=== PATIENT | male | born 1950 | race Caucasian/White ===

== ENCOUNTER → 2020-01-16 14:25 | Outpatient (BNVA) | payer BC, MEDICARE, SELFPAY | PROVIDERS: PCP Internal Medicine; Visit Provider Nurse Practitioner Family | DX: Z11.59 Encounter for screening for other viral diseases (principal); J06.9 Acute upper respiratory infection, unspecified | CPT/HCPCS: 87635 ==

== ENCOUNTER → 2020-04-27 14:12 | Outpatient (BNVA) | payer BC, MEDICARE, SELFPAY | PROVIDERS: PCP Internal Medicine; Visit Provider Nurse Practitioner Family | DX: Z20.828 Contact with and (suspected) exposure to other viral communicable diseases (principal); J06.9 Acute upper respiratory infection, unspecified | CPT/HCPCS: 87635 ==

== ENCOUNTER → 2020-06-23 13:49 | Outpatient (BNVA) | payer MEDICARE, SELFPAY | PROVIDERS: PCP Internal Medicine; Referring Provider Nurse Practitioner Family; Visit Provider Specialist | DX: G56.03 Carpal tunnel syndrome, bilateral upper limbs (principal); G62.9 Polyneuropathy, unspecified; R20.0 Anesthesia of skin; R20.2 Paresthesia of skin | CPT/HCPCS: 95910 ==

== ENCOUNTER 2020-07-31 07:19 | Outpatient (RCR) | payer MEDICARE, SELFPAY | END 2020-08-28 23:59 | disposition home or self-care (01) | LOC: SOT 07:19 | PROVIDERS: PCP Internal Medicine; Referring Provider Orthopaedic Surgery; Visit Provider Orthopaedic Surgery | DX: M19.031 Primary osteoarthritis, right wrist (principal) | CPT/HCPCS: 97018; 97110; 97165 ==

== ENCOUNTER 2021-02-02 15:40 | Observation (INO) | payer MEDICARE, SELFPAY ==
[2021-02-02] VITALS (11 sets, daily range): BP systolic 98–148; BP diastolic 63–107; PULSE 70–140; RESP 16–22; TEMP 36.6–36.9; O2SAT 97–98; BMI 28.6
--- NOTE | 2021-02-02 16:03 | ED_ITS ---
HPI - SOB/Dyspnea General: Chief Complaint: Chest Pain Stated Complaint: 2 ABNORMAL EKG'S,IRR HB W/FLUTTER: SENT BY NANCY Time Seen by Provider: 02/02/21 16:01 History of Present Illness: HPI Narrative: Ms Son is a 70-year-old gentleman without significant past medical history of arrhythmia who presents emergency department due to abnormal heart rhythm. He reports 3 to 4-day history of generalized malaise but no specific lightheadedness, palpitations, chest pain, or shortness of breath. He had positive sick contacts and thought that this was just related to that. He also has a history of Covid which has some baseline residual shortness of breath however that is not worse. He went to the urologist office and they took his heart rate and realized he was in atrial fibrillation with RVR. No history of similar. No specific known exacerbating, alleviating, or provoking factors. No environmental or medication changes. Review of Systems General: Reports: 10 or more systems reviewed and unremarkable except in HPI and below PFSH ED PFSH: Medical History Abdominal pain Bilateral carpal tunnel syndrome Bilateral wrist pain BPH (benign prostatic hyperplasia) COVID-19 History of pulmonary embolism Peripheral neuropathy Surgical History History of hernia repair Family History Other CAD (coronary artery disease) Denies family history of Cancer Social History Smoking and tobacco status: never smoked Alcohol intake: never Caregiver/support person: Yes Lives independently: Yes Household members: family Housing: House Physical Exam Narrative: EXAM NARRATIVE: GENERAL/CONSTITUTIONAL - well-appearing. No acute distress. Eyes - PERRL, no conjunctival injection ENMT - Atraumatic external nose and ears. Moist mucous membranes NECK - supple. trachea midline CARDIOVASCULAR -irregularly irregular rhythm. Tachycardic rate.. Peripheral pulses 2+ and equal RESPIRATORY -clear to auscultation bilaterally. No retractions or accessory muscle use. ABDOMEN/GI - Nontender/Nondistended. MSK - Extremities without obvious deformity or tenderness to palpation SKIN - Warm, Dry NEURO - alert and appropriately oriented. No neurologic deficits appreciated on clinical exam. Moves all extremities equally. PSYCH - Appropriate mood and affect Course ED course: - Patient was seen and evaluated by me at bedside - Patient placed on cardiac monitors, IV access obtained - Initial evaluation notable for atrial fibrillation with rapid ventricular response. - Due to unclear time of onset of symptoms, patient not a candidate for ED cardioversion. - Cardizem bolus and drip ordered with improved rate control. Lovenox ordered - Labs notable for leukocytosis of unclear source, no significant metabolic abnormality to explain patient's arrhythmia. - Imaging notable for no lobar consolidation - Upon serial reexamination after treatment the patient was improved with rate control - Based on patient history, evaluation, labs, and imaging as interpreted the most likely cause of the patient's condition is atrial fibrillation with RVR - The results of ED evaluation were discussed with the patient including plan for admission due to requirement for level of care not available if discharged to prevent significant worsening/deterioration. - Hospitalist service contacted and agreed to admit the patient. At their request further infectious work-up ordered given leukocytosis. CT chest, abdomen, pelvis results pending at time of admission and will be deferred to admitting team. - Patient was admitted without further deterioration or significant events. Vital Signs: Vital signs: Vital Signs Temperature 98.0 F 02/03/21 03:37 Pulse Rate 77 02/03/21 13:25 Respiratory Rate 19 H 02/03/21 13:25 Blood Pressure 119/75 02/03/21 13:25 Pulse Oximetry 97 02/03/21 13:25 MDM - SOB/Dyspnea Medical Records: Attestation: I reviewed the patient's medical records. Lab Data: Attestation: I reviewed the patient's lab results. Labs: Lab Results 02/02/21 02/02/21 02/02/21 16:05 16:05 16:05 WBC 21.2 10^3/uL H 10 ^3/uL (4.0-10.0) RBC 4.26 10^6/uL 10^6 /uL (4.1-5.3) Hgb 12.7 g/dL g/dL (11.7-16.6) Hct 40.1 % L % (42.0-52.0) MCV 94.1 fl H fl (80-94) MCH 29.8 pg pg (28.0-34.0) MCHC 31.7 g/dL g/dL (30.0-36.0) RDW 21.7 % H % (12.1-15.1) Plt Count 385 10^3/cmm 10^3 /cmm (130-400) MPV 8.5 fL fL (7.4-10.4) Neut % (Auto) 64.9 % % Lymph % (Auto) 15.0 % % Logan % (Auto) 13.6 % % Eos % (Auto) 2.2 % % Baso % (Auto) 1.0 % % Neut # (Auto) 13.76 10^3/uL H 1 0^3/uL (1.8-7.7) Lymph # (Auto) 3.2 10^3/uL 10^3/ uL (0.8-4.8) Logan # (Auto) 2.9 10^3/uL H 10^ 3/uL (0.2-0.9) Eos # (Auto) 0.5 10^3/uL 10^3/ uL (0.0-0.8) Baso # (Auto) 0.2 10^3/uL H 10^ 3/uL (0.0-0.1) Nucleated RBC % (a uto) 0 % % Nucleated RBCs # 0.0 /100WBC /100W BC D-Dimer Sodium 138 mmol/L mmol/L (136-145) Potassium 4.6 mmol/L mmol/L (3.5-5.1) Chloride 103 mmol/L mmol/L (98-107) Carbon Dioxide 25 mmol/L mmol/L (22-29) Anion Gap 14.6 (5-19) BUN 19 mg/dL mg/dL (8-23) Creatinine 0.9 mg/dL mg/dL (0.7-1.2) GFR Calculation Not Reportable Glucose 91 mg/dL mg/dL (65-115) Calculated Osmolal ity 288 mOsm/kg mOsm/ kg (285-295) Calcium 8.9 mg/dL mg/dL (8.5-10.5) Magnesium 2.0 mg/dL mg/dL (1.7-2.3) Total Bilirubin 0.7 mg/dL mg/dL (0.15-1.2) AST 26 U/L U/L (0-40) ALT 20 U/L U/L (0-41) Alkaline Phosphata se 145 IU/L H IU/L (40-130) Troponin T Baselin e 61 ng/L H ng/L (0-15) NT-Pro-B Natriuret Pep 2172 pg/mL H pg/m L (0-125) Total Protein 6.7 g/dL g/dL (6.6-8.7) Albumin 3.9 g/dL g/dL (3.5-5.2) Globulin 2.8 g/dL g/dL (1.3-4.6) TSH 2.16 uIU/mL uIU/m L (0.27-4.20) SARS-CoV-2 Ag (Rap id) 02/02/21 02/02/21 16:05 16:45 WBC RBC Hgb Hct MCV MCH MCHC RDW Plt Count MPV Neut % (Auto) Lymph % (Auto) Logan % (Auto) Eos % (Auto) Baso % (Auto) Neut # (Auto) Lymph # (Auto) Logan # (Auto) Eos # (Auto) Baso # (Auto) Nucleated RBC % (a uto) Nucleated RBCs # D-Dimer 0.62 ug/mIFEU H u g/mIFEU (0-0.59) Sodium Potassium Chloride Carbon Dioxide Anion Gap BUN Creatinine GFR Calculation Glucose Calculated Osmolal ity Calcium Magnesium Total Bilirubin AST ALT Alkaline Phosphata se Troponin T Baselin e NT-Pro-B Natriuret Pep Total Protein Albumin Globulin TSH SARS-CoV-2 Ag (Rap id) Negative (Negative) EKG Data^: EKG 1: Attestation: I personally reviewed and interpreted this EKG as follows: EKG Interpretation Date: 02/02/21 EKG interpretation time: 15:58 Interpretation: Twelve-lead EKG shows an irregular rhythm at a rate of 145. No OH interval, QRS duration 113, QTc 368. Left axis deviation. : Interpretation: Atrial rhythm with rapid ventricular response. EKG 2: Attestation: I personally reviewed and interpreted this EKG as follows: EKG Interpretation Date: 02/02/21 EKG interpretation time: 19:00 Interpretation: Twelve-lead EKG shows a irregular rhythm at a rate of 97 No OH interval, QRS duration 98, QTc 397 Normal axis Interpretation: Atrial flutter with controlled ventricular response. Discharge Plan Discharge Admit Provider: Cristobal West Condition: Stable Discharge Orders: Discharge Order (Routine); Ordered 02/03/21 Ordered By: Cristobal West Discharge Diet: Cardiac Discharge Activity: Resume usual activity Coding Level of Care Code ED Student Activities Director for Natasha Salmeron
--- NOTE | 2021-02-02 16:11 | XR_ITS ---
WS: [id number] XR chest 1V portable [id number] REASON FOR EXAM: afib rvr FINDINGS: Moderate tortuosity, mild ectasia, of the thoracic aorta without focal aneurysmal dilatation. Normal heart size. Calcified granulomatous disease in both hemithoraces. There are 2 opacities in the periphery of the l eft midlung field of uncertain etiology but likely part of the calcified granulomatous changes. No acute pulmonary parenchymal or pleural abnormality. Mild degenerative changes in the mid and lower thoracic spine. XR/XR chest 1V portable [id number] IMPRESSION: No acute chest abnormality.
[2021-02-02 16:21] LABS: Basophils # 0.2 10^3/uL (0.0-0.1); Eosinophils # 0.5 10^3/uL (0.0-0.8); Eosinophils % 2.2 %; Hematocrit 40.1 % (42.0-52.0); Hemoglobin 12.7 g/dL (11.7-16.6); Lymphocytes # 3.2 10^3/uL (0.8-4.8); Mean Corpuscular HGB Conc 31.7 g/dL (30.0-36.0); Mean Corpuscular Hemoglobin 29.8 pg (28.0-34.0); Mean Corpuscular Volume 94.1 fl (80-94); Mean Platelet Volume 8.5 fL (7.4-10.4); Monocytes # 2.9 10^3/uL (0.2-0.9); Monocytes % 13.6 %; Neutrophils # 13.76 10^3/uL (1.8-7.7); Neutrophils % 64.9 %; Nucleated Red Blood Cells % 0 %; Platelet Count 385 10^3/cmm (130-400); Red Blood Count 4.26 10^6/uL (4.1-5.3); Red Cell Distribution Width 21.7 % (12.1-15.1); White Blood Count 21.2 10^3/uL (4.0-10.0)
[2021-02-02] MEDS: enoxaparin 80 mg/0.8 mL Syringe SUBCUT (16:42)
[2021-02-02 17:10] LABS: Troponin(5th) Baseline 61 ng/L (0-15)
[2021-02-02 17:17] LABS: Alanine Aminotransferase 20 U/L (0-41); Albumin Level 3.9 g/dL (3.5-5.2); Alkaline Phosphatase 145 IU/L (40-130); Anion Gap 14.6 (5-19); Aspartate Amino Transferase 26 U/L (0-40); Blood Urea Nitrogen 19 mg/dL (8-23); Calcium 8.9 mg/dL (8.5-10.5); Carbon Dioxide 25 mmol/L (22-29); Chloride 103 mmol/L (98-107); Globulin 2.8 g/dL (1.3-4.6); Glucose 91 mg/dL (65-115); NT Pro B Type Natriuretic Pept 2172 pg/mL (0-125); Osmolality Calculated 288 mOsm/kg (285-295); Potassium 4.6 mmol/L (3.5-5.1); Sodium 138 mmol/L (136-145); Thyroid Stimulating Hormone 2.16 uIU/mL (0.27-4.20); Total Bilirubin 0.7 mg/dL (0.15-1.2); Total Protein 6.7 g/dL (6.6-8.7)
--- NOTE | 2021-02-02 18:06 | P.HP_ITS ---
Providers/Chief Complaint Primary Care Provider: Fabi Loving DO Chief Complaint: 2 ABNORMAL EKG'S,IRR HB W/FLUTTER: SENT BY NANCY History of Present Illness Ponce Son is a 70 year old male with past medical history of COVID-19 last year, BPH, pulmonary embolism more than 20 years ago post abdominal hernia surgery who presented to the ER today from urology office when he was found to have atrial fibrillation with rapid ventricular response on vital checks. Patient denies any nausea vomiting, headache, dizziness, palpitation, chest pain. Patient states he has been having difficulty in breathing since he got over COVID-19 in March of last year. Currently he denies of having any symptoms. He does states he has been having lower abdominal pain for last 1 week which he attributed to his chronic prostate problems. Denies having any dysuria or diarrhea. Does have sick contacts with family members having sym ptoms of viral URI. Has been vaccinated for COVID-19. Blood work in the ER showed a white count of 21,000, hemoglobin of 12, sodium 138, creatinine of 0.9, alkaline phosphatase of 145, proBNP of 3000, TSH of 2.16 with chest x-ray as below. On examination patient is on Cardizem drip 5 with heart rate ranging from high 80s to high 90s sometimes going into 110s with blood pressure mean over 70, satu rating 95% on room air. Review of Systems General: Reports: 10 or more systems reviewed and unremarkable except in HPI and below Const: Denies: fever(s), chills, body aches, change in appetite, change in weight, malaise, night sweats, diaphoresis, change in sleep pattern, daytime sleepiness or snoring Eyes: Denies: change in vision, blurry vision, photophobia, eye discomfort or eye discharge ENMT: Denies: throat pain, enlarged tonsils, hoarseness, mouth pain, oral sores, dry mouth, tinnitus, nasal congestion or post nasal drip Card: Denies: chest pain, palpitations, irregular heart rhythm, edema, swelling of feet/ankles, lightheadedness, syncope, pre-syncope, dyspnea on exertion, orthopnea, leg pain with exertion or acrocyanosis Resp: Denies: dyspnea, productive cough, non-productive cough, wheezing, stridor, pain on inspiration, change in phlegm color, hemoptysis or chest congestion GI: Denies: abdominal pain, nausea, vomiting, hematemesis, coffee ground emesis, dysphagia, heartburn, diarrhea, constipation, bloating, GI cramping, change in bowel habits, pain on defecation, hematochezia or melena : Denies: flank pain, difficulty urinating, dysuria, urinary frequency, urinary urgency, urinary hesitancy, urinary dribbling, difficulty starting urination, change in urine stream, nocturia or hematuria Musc: Denies: neck pain, back pain, extremity pain, joint pain, joint swelling, joint redness, joint stiffness or limited range of motion Neuro: Denies: headache(s), numbness in extremities, weakness in extremities, sensory changes, lack of coordination, difficulty walking, frequent falls, dizziness, vertigo, confusion, Slurred speech present, difficulty communicating thoughts or seizure-like activity Psych: Denies: anxiety, depression, mood swings, panic attacks, hopelessness or irritability Endo: Denies: polyuria, polydipsia, tired all the time, cold intolerance, excessive sweating, flushing or heat intolerance Luis/Lymph: Denies: easy bruising or easy bleeding All/Imm: Denies: tongue swelling, facial swelling or acute wheezing Medications/Allergies Home Medications Medication Instructions Recorded Confirmed Last Taken Type atorvastatin 40 mg tablet 40 mg PO DAILY@01/16/20 02/02/21 02/01/21 History tamsulosin 0.4 mg capsule 0.4 mg PO DAILY@01/16/20 02/02/21 02/01/21 History Mobic 15 mg PO DAILY@02/02/21 02/02/21 02/01/21 History Vitamin B-12 2 tab PO DAILY 02/02/21 02/02/21 Unknown History ascorbic acid (vitamin C) [Vitamin 500 mg PO DAILY 02/02/21 02/02/21 Unknown History C] aspirin 325 mg PO Q4H PRN 02/02/21 02/02/21 Unknown History glucosamine sulfate [Glucosamine] 500 mg PO DAILY 02/02/21 02/02/21 Unknown History multivitamin 1 tab PO DAILY 02/02/21 02/02/21 Unknown History omeprazole 60 mg PO DAILY@18 02/02/21 02/02/21 02/01/21 History tadalafil 20 mg PO . DIRECTED PRN 02/02/21 02/02/21 Unknown History Allergies Allergy/AdvReac Type Severity Reaction Status Date / Time guaifenesin [From Mucinex] Allergy ADV-Weaknes Verified 02/02/21 16:51 s PFSH Acute PFSH: Medical History (Updated 02/02/21 @ 18:30 by Cristobal West MD) Bilateral carpal tunnel syndrome Bilateral wrist pain BPH (benign prostatic hyperplasia) COVID-19 History of pulmonary embolism Peripheral neuropathy Surgical History (Updated 02/02/21 @ 18:30 by Cristobal West MD) History of hernia repair Family History (Updated 02/02/21 @ 18:30 by Cristobal West MD) Other CAD (coronary artery disease) Denies family history of Cancer Social History (Updated 02/02/21 @ 18:30 by Cristobal West MD) Smoking and tobacco status: never smoked Alcohol intake: never Substance/Drug Use: never Caregiver/support person: Yes Lives independently: Yes Household members: family Housing: House Vitals/I&O/Wt Last Vital Signs Temp 98.3 F 02/02/21 16:20 Pulse 99 02/02/21 17:51 Resp 16 02/02/21 17:51 BP 116/79 02/02/21 17:51 Pulse Ox 98 02/02/21 17:51 Weight last 48 hrs Weight 83.007 kg Physical Exam Narrative: EXAM NARRATIVE: General: No acute distress, AO x3 HEENT: PERRLA, pupils bilaterally equal and reactive Chest: Normal vesicular breath sounds, no added sounds, equal good air entry bilaterally CVS: S1-S2 irregularly irregular, no murmurs, no tachycardia, no gallops, no rubs Abdomen: Soft, nontender, no organomegaly, bowel sounds present Neuro: No focal deficits, no facial deformity, AO x3, power 5/5 in all limbs Data : 02/02/21 16:05 02/02/21 16:05 A&P Assessment and plan (1) New onset a-fib: Status: Acute (2) Abdominal pain: Status: Acute Additional A&P Information New onset atrial fibrillation: Continue with Cardizem drip. Start patient on Cardizem 60 every 8 hourly. Wean off Cardizem drip keeping resting heart rate less than 100. Sharan vas score: 1 for age. Discussed in detail with patient regarding anticoagulation. Patient states he has history of easy bruising especially since COVID-19. For now we will keep patient on aspirin 325 mg daily. Check D-dimer, cardiac echocardiogram. Leukocytosis: No overt signs of sepsis. No overt signs of infection. Check procalcitonin, blood culture, MRSA swab, urinalysis, urine culture, sputum culture. Check CT abdomen pelvis with contrast. If D-dimer elevated will do CT chest with contrast as well. For now start patient on IV Zosyn which would cover for a possible colitis versus UTI. Will de-escalate diuretics. If CT results negative and if patient does not spike fever in next 24 hours. Check iron panel, PSA, lipid panel, HbA1c. Full code. Cardiac diet. Aspirin 325 mg will help with DVT prophylaxis as well Famotidine for PUD prophylaxis Attestations Medical Necessity Statement*: Admission for more than 2 midnights for management of new onset atrial fibrillation requiring IV Cardizem Time Spent in Patient Care: Greater than 35 minutes (>than 50% of time spent in counselling and/or direct pt care on unit) . Coding Level of Care Code Acute Microbiology Soil Scientist for g Fwd Diagnoses New onset a-fib I48.91 Abdominal pain R10.9
--- NOTE | 2021-02-02 18:11 | ECG_ITS ---
[facility] Test Date: 2021-02-02 Pat Name: Ponce Son Department: Room: 106 Gender: Male Apple Sorter: : 1950 Requested By: Bladimir Foster Order Number: [id number] Suha MD: Mateo Hernandez M.D. Measurements Intervals [place] Rate: 97 P: RI: QRS: 16 QRSD: 98 T: 81 QT: 342 QTc: 436 Interpretive Statements ATRIAL FLUTTERwith variable block NONSPECIFIC T-WAVE ABNORMALITY ABNORMAL RHYTHM ECG No previous ECG available for comparison Electronically Signed On 02-03-2021 23:05:13 CDT by Mateo Hernandez M.D. [id number]
[2021-02-02 18:31] LABS: SARS Covid-2 Antigen Negative (Negative)
[2021-02-02 18:47] LABS: Troponin 5 2HR 66.66 ng/L (0-15); Troponin 5 2HR Delta 5.66 ABS# (0-10)
[2021-02-02 18:48] LABS: D Dimer 0.62 ug/mIFEU (0-0.59)
[2021-02-02 18:50] LABS: Iron 29 ug/dL (59-158); Percent Saturation 12.5 % (20-50); Total Iron Binding Capacity 232 mcg/dl; Unsaturated Iron Binding 203 ug/dL (112-347)
[2021-02-02] MEDS: dilTIAZem 30 mg Tablet 60 MG PO ×2 (18:50→23:27)
[2021-02-02] MEDS: atorvastatin 40 mg Tablet PO (18:50)
[2021-02-02 18:51] LABS: Add Urine Microscopic? NO; Charge for UA Resulting for Rev
--- NOTE | 2021-02-02 18:53 | CTR_ITS ---
PROCEDURE INFORMATION: Exam: CT Chest With Contrast; Diagnostic Exam date and time: 02/02/2021 6:53 PM Age: 70 years old Clinical indication: Abdominal pain; Localized; Lower; Other: High hr, abnormal ekg; Prior surgery; Surgery type: Hernia; Additional info: Elevated ddimer TECHNIQUE: Imaging protocol: Diagnostic computed tomography of the chest with contrast. Radiation optimization: All CT scans at this facility use at least one of these dose optimization techniques: automated exposure control; mA and/or kV adjustment per patient size (includes targeted exams where dose is matched to clinical indication); or iterative reconstruction. Contrast material: OMNI 300; Contrast volume: 95 ml; Contrast route: INTRAVENOUS (IV); COMPARISON: CR (CHEST, ) 02/02/2021 4:25 PM RADIATION DOSE METRICS: Total DLP (mGy-cm): 1575.32 FINDINGS: Lungs: Small patchy ground-glass opacities scattered throughout the left upper and lower lobes. 1.6 cm nodular consolidation in the peripheral left upper lobe. 4 mm right lower lobe nodule, series 2, image 34. 3 mm right lower lobe nodule, image 35. Pleural spaces: Unremarkable. No pneumothorax. No pleural effusion. Heart: Trace pericardial effusion. Aorta: Unremarkable. No aortic aneurysm. Lymph nodes: Prominent mediastinal and hilar lymph nodes are most likely reactive. Bones/joints: Mild rightward thoracic curvature. No fracture. Soft tissues: Unremarkable. IMPRESSION: 1. Scattered ground-glass opacities throughout the left lung, consistent with pneumonia. 2. 1.6 cm nodular consolidation in the peripheral left upper lobe is most likely pneumonia. CT follow-up in 2-3 months to document resolution is recommended. 3. Pulmonary nodules measuring up to 4 mm. For patients at low risk (minimal or absent history of smoking and of other known risk factors), no routine follow-up is indicated. For patients at high risk (history of smoking or of other known risk factors), consider optional CT Chest at 12 months. (Reference: [place]) References: Herlinda Olivas et al. Guidelines for Management of Incidental Pulmonary Nodules Detected on CT Images: From the Fleischner Society 2017. Radiology. 2017;284(1):228-243. PROCEDURE INFORMATION: Exam: CT Abdomen And Pelvis With Contrast Exam date and time: 02/02/2021 6:53 PM Age: 70 years old Clinical indication: Abdominal pain; Localized; Lower; Other: High hr, abnormal ekg; Prior surgery; Surgery type: Hernia; Additional info: Elevated ddimer TECHNIQUE: Imaging protocol: Computed tomography of the abdomen and pelvis with contrast. Radiation optimization: All CT scans at this facility use at least one of these dose optimization techniques: automated exposure control; mA and/or kV adjustment per patient size (includes targeted exams where dose is matched to clinical indication); or iterative reconstruction. Contrast material: OMNI 300; Contrast volume: 95 ml; Contrast route: INTRAVENOUS (IV); COMPARISON: CR (CHEST, ) 02/02/2021 4:25 PM RADIATION DOSE METRICS: Total DLP (mGy-cm): 1575.32 FINDINGS: Tubes, catheters and devices: Mesh anchors in the lower anterior abdominal wall. Liver: Normal. No mass. Gallbladder and bile ducts: Normal. No calcified stones. No ductal dilation. Pancreas: Normal. No ductal dilation. Spleen: Normal. No splenomegaly. Adrenal glands: Normal. No mass. Kidneys and ureters: 2.4 cm oval cortical lesion in the inferior right kidney, Hounsfield units measuring 22. The kidneys are otherwise unremarkable. No calculus or hydronephrosis. Stomach and bowel: Duodenal diverticulum. Appendix: The appendix is visualized and is normal. Intraperitoneal space: Unremarkable. No free air. No significant fluid collection. Vasculature: Arterial calcifications. No aneurysm. Lymph nodes: Unremarkable. No enlarged lymph nodes. Urinary bladder: Unremarkable as visualized. Reproductive: Coarse calcifications in the prostate. Bones/joints: Degenerative changes in the lumbar spine. No fracture. Soft tissues: Small fat containing umbilical hernia. Mild stranding and gas bubbles in the anterior left abdominal wall most likely represent medication injection sites. Mild subcutaneous edema in the hip regions. CT/CT chest abd pel w con* IMPRESSION: 1. No acute abnormality identified in the abdomen or pelvis. 2. 2.4 cm cortical lesion in the inferior right kidney is most likely a slightly proteinaceous cyst with Hounsfield units slightly greater than the strict criteria for a simple cyst. Recommend non-emergent MRI without and with contrast or non-emergent CT without and with contrast. MRI is preferred for masses under 1.5 cm. Radiation Dose CTDIVOL = (mGy): DLP = 1575.32~1575.32 (mGy-cm)
[2021-02-02 18:57] LABS: Procalcitonin 0.14 ng/mL (0-0.5)
[2021-02-02 19:09] LABS: Bilirubin Urine Neg (Negative); Blood Urine Neg (Negative); Glucose Urine UA Norm (Normal); Ketones Urine Negative (Negative); Leukocyte Esterase Urine Negative (Negative); Nitrate Urine Negative (Negative); Protein Urine Neg (Negative); Urine Appearance Clear (CLEAR); Urine Color Yellow (Yellow); Urobilinogen Urine Norm (Negative); pH Urine 5 (5-7)
[2021-02-02] MEDS: iohexol 300 mg/mL 100 mL Btl IV (19:17)
--- NOTE | 2021-02-02 22:11 | ECG_ITS ---
[facility] Test Date: 2021-02-02 Pat Name: Ponce Son Department: Room: 106 Gender: Male Machine Ii Trimmer: : 1950 Requested By: Bladimir Foster Order Number: [id number] Suha MD: Mateo Hernandez M.D. Measurements Intervals [place] Rate: 77 P: OH: QRS: 9 QRSD: 102 T: 83 QT: 395 QTc: 447 Interpretive Statements ATRIAL FLUTTER/TACHYCARDIA Compared to ECG 02/02/2021 18:55:25 T-wave abnormality no longer present Electronically Signed On 02-03-2021 23:06:12 CDT by Mateo Hernandez M.D. [id number]
[2021-02-03 03:03] VITALS: PULSE 66
[2021-02-03 03:37] VITALS: BP 118/74; PULSE 78; RESP 16; TEMP 36.7; O2SAT 97
[2021-02-03 05:01] LABS: Basophils # 0.2 10^3/uL (0.0-0.1); Basophils % 1.1 %; Eosinophils # 0.6 10^3/uL (0.0-0.8); Eosinophils % 3.2 %; Hematocrit 38.7 % (42.0-52.0); Hemoglobin 12.4 g/dL (11.7-16.6); Lymphocytes # 2.5 10^3/uL (0.8-4.8); Lymphocytes % 14.2 %; Mean Corpuscular Hemoglobin 30.2 pg (28.0-34.0); Mean Corpuscular Volume 94.4 fl (80-94); Mean Platelet Volume 8.5 fL (7.4-10.4); Monocytes # 2.7 10^3/uL (0.2-0.9); Monocytes % 15.6 %; Neutrophils # 10.83 10^3/uL (1.8-7.7); Neutrophils % 62.1 %; Nucleated Red Blood Cells % 0 %; Platelet Count 347 10^3/cmm (130-400); Red Cell Distribution Width 21.9 % (12.1-15.1); White Blood Count 17.5 10^3/uL (4.0-10.0)
[2021-02-03 05:27] LABS: Alanine Aminotransferase 17 U/L (0-41); Albumin Level 3.5 g/dL (3.5-5.2); Alkaline Phosphatase 145 IU/L (40-130); Anion Gap 12.2 (5-19); Aspartate Amino Transferase 22 U/L (0-40); Blood Urea Nitrogen 16 mg/dL (8-23); Calcium 8.7 mg/dL (8.5-10.5); Carbon Dioxide 25 mmol/L (22-29); Chloride 106 mmol/L (98-107); Chol HDL Ratio 4.52 mg/dL (1.0-5.00); Cholesterol 104 mg/dL (0-200); Globulin 2.8 g/dL (1.3-4.6); Glucose 92 mg/dL (65-115); HDL Cholesterol 23 mg/dL (60-100); LDL Cholesterol Calculated 52 mg/dL (50-129); LDL HDL Ratio 2.26 RATIO (0.00-3.22); Osmolality Calculated 289 mOsm/kg (285-295); Potassium 4.2 mmol/L (3.5-5.1); Sodium 139 mmol/L (136-145); Total Bilirubin 0.8 mg/dL (0.15-1.2); Total Protein 6.3 g/dL (6.6-8.7); Triglycerides 143 mg/dL (0-150)
[2021-02-03 05:46] LABS: Estmated Average Glucose 111; Hemoglobin A1C 5.5 % (4.0-6.0)
[2021-02-03 07:51] VITALS: BP 110/76; PULSE 103; RESP 17; O2SAT 94
--- NOTE | 2021-02-03 09:20 | PC.CHAP ---
Pastoral Care Encounter/Spiritual Assessment Type of Contact [] Declined cable hooker visit [] Patient/Family/Request visit [] Outpatient visit [] Follow-up visit [] Physician referral [] Code/Alert [x] Routine visit [] Staff referral [] Actively dying [] Patient sleeping [] Family support [] [] Out of room [] Palliative care [] [] Receiving care in room [] Pre-surgical visit [] Trauma [] Long length of stay [] ICU visit [] Other: Relational/Emotional Strength [] Patient feels connected with others/family/visitors/staff [] Distress [] Loneliness/isolation [] Abandonment Spirituality of Patient [x] Person of Annika [] Attends Protestant of their Annika [] Believes in Prayer [] Reads Bible or Orthodox materials [] There are Spiritual issues to be addressed Solar Hot Water Installer Interventions [x] Prayer [x] Active listening [x] Non-anxious presence [x] Spiritual/emotional support [] Crisis/trauma care [] Spiritual counseling [] Bereavement support [] Provided bereavement packet [] Provided Bible/devotional materials [] Provided toy/stuffed animal, coloring book to patient or family member [] Provided Communion [] Anointing/[place] [] Salvation [x] Completed spiritual assessment [] Other: Impact on Illness or Injury [] Angry [] Fearful [] Anxious [] Often cries [] Exhaustion [] Unable to work [] Unable to attend muslim [] Unable to walk/stand [] Unable to read [] Unable to drive [] Unable to eat/drink [] Unable to sleep [] Unable to be with family [] Patient intubated [] Other: Summary visited GP for one issue and another was noted and he is here getting it addressed. appreciates the staff for their care. Time spent with patient 10 min
[2021-02-03] MEDS: ferrous gluconate 324 mg Tablet PO (09:28)
[2021-02-03] MEDS: famotidine 20 mg Tablet PO (09:29)
[2021-02-03] MEDS: dilTIAZem 30 mg Tablet 60 MG PO (09:29)
--- NOTE | 2021-02-03 11:48 | PC.NURSE ---
pt ambulated in [place] several laps.tolerated well.highest heart rate 110.recovered quickly.no bee noted.o2 sat 100% on room air after walk.
[2021-02-03 12:00] VITALS: BP 119/75; PULSE 77; RESP 19; O2SAT 97
--- NOTE | 2021-02-03 12:38 | PM.DCS ---
Discharge Providers Date of Admission: 02/02/21 17:45 Date of Discharge: February 03, 2021 Attending Provider at Admission: Cristobal West MD Attending Provider at Discharge: Cristobal West MD Primary Care Provider: Fabi Loving DO Diagnoses at Discharge Discharge Diagnosis (1) New onset a-fib: Status: Acute (2) Abdominal pain: Status: Acute Reason for Visit Reason for Visit: 2 ABNORMAL EKG'S,IRR HB W/FLUTTER: SENT BY [facility] Hospital Course Hospital Course Ponce Son is a 70 year old male with past medical history of COVID-19 last year, BPH, pulmonary embolism more than 20 years ago post abdominal hernia surgery who presented to the ER today from urology office when he was found to have atrial fibrillation with rapid ventricular response on vital checks. Patient denies any nausea vomiting, headache, dizziness, palpitation, chest pain. Patient states he has been having difficulty in breathing since he got over COVID-19 in March of last year. Currently he denies of having any symptoms. He does states he has been having lower abdominal pain for last 1 week which he attributed to his chronic prostate problems. Denies having any dysuria or diarrhea. Does have sick contacts with family members having symptoms of viral URI. Has been vaccinated for COVID-19. Blood work in the ER showed a white count of 21,000, hemoglobin of 12, sodium 138, creatinine of 0.9, alkaline phosphatase of 145, proBNP of 3000, TSH of 2.16 with chest x-ray as below. Patient was admitted to hospital for further management of atrial fibrillation. He was started on Cardizem drip which was later transitioned over to oral Cardizem. He responded well to the treatment and has remained rate controlled both at rest and ambulation. Patient started Vascor was found to be 1 for his age. Further anticoagulation needs and modalities were discussed in detail with the patient and he decided to remain on aspirin 325 mg daily. Admission patient was found to have significant leukocytosis without any active signs of infection. CT abdomen pelvis chest was done which showed a negative signs for infection. CT chest did show pulmonary nodules which could be reactive or resolving Covid consolidations. Patient did not have any active signs of pneumonia. Cultures have remained negative and patient remained hemodynamically stable and afebrile off antibiotics. Patient is being discharged in hemodynamically stable condition with advised to follow-up with his primary care provider within next 1 week. He is advised to have pulmonary function test as an outpatient and follow-up with pulmonology within next 2 weeks. Physical Exam Narrative: EXAM NARRATIVE: General: No acute distress, AO x3 HEENT: PERRLA, pupils bilaterally equal and reactive Chest: Normal vesicular breath sounds, no added sounds, equal good air entry bilaterally CVS: S1-S2 irregularly irregular, no murmurs, no tachycardia, no gallops, no rubs Abdomen: Soft, nontender, no organomegaly, bowel sounds present Neuro: No focal deficits, no facial deformity, AO x3, power 5/5 in all limbs Discharge Data Data Completed and Pending: Completed Studies During Hospitalization Category Date Time Status CT chest abd pel w con* Routine Cat Scan 02/02/21 18:53 Completed XR chest 1V cristopher ble [id number] Urgent Exams 02/02/21 16:11 Completed CV. echo complete * [id number] Routine Ultrasound 02/03/21 18:04 Completed Pending at discharge Category Date Time Status Blood Culture Sta t Lab 02/02/21 18:34 Results MRSA by PCR Routi ne Lab 02/02/21 20:15 Received Sputum Culture an d Gram Stain Stat Lab 02/02/21 21:00 Received Labs from last 24 hours 02/03/21 02/03/21 02/03/21 04:30 04:30 04:30 WBC 17.5 H RBC 4.10 Hgb 12.4 Hct 38.7 L MCV 94.4 H MCH 30.2 MCHC 32.0 RDW 21.9 H Plt Count 347 MPV 8.5 Neut % (Auto) 62.1 Lymph % (Auto) 14.2 [place] % (Auto) 15.6 Eos % (Auto) 3.2 Baso % (Auto) 1.1 Neut # (Auto) 10.83 H Lymph # (Auto) 2.5 [place] # (Auto) 2.7 H Eos # (Auto) 0.6 Baso # (Auto) 0.2 H Nucleated RBC % (a uto) 0 Nucleated RBCs # 0.0 D-Dimer Sodium 139 Potassium 4.2 Chloride 106 Carbon Dioxide 25 Anion Gap 12.2 BUN 16 Creatinine 0.9 GFR Calculation Not Reportable Glucose 92 Estimat Average Gl ucose 111 Hemoglobin A1c 5.5 Calculated Osmolal ity 289 Calcium 8.7 Magnesium Iron TIBC % Saturation Unsat Iron Binding Total Bilirubin 0.8 AST 22 ALT 17 Alkaline Phosphata se 145 H Troponin T Baselin e Troponin T 120 [address] [place] Delta Troponin T Troponin T Hi Sens 6Hr Troponin T Hi Sens 6Hr Delta NT-Pro-B Natriuret Pep Total Protein 6.3 L Albumin 3.5 Globulin 2.8 Triglycerides 143 Cholesterol 104 LDL Cholesterol, C alc 52 HDL Cholesterol 23 L LDL/HDL Ratio 2.26 Cholesterol/HDL Ra selena 4.52 Procalcitonin TSH Urine Color Urine Appearance Urine pH Ur Specific Gravit y Urine Protein Urine Glucose (UA) Urine Ketones Urine Blood Urine Nitrate Urine Bilirubin Urine Urobilinogen Ur Leukocyte Sandi ase SARS-CoV-2 Ag (Rap id) 02/02/21 02/02/21 02/02/21 21:41 18:50 18:00 WBC RBC Hgb Hct MCV MCH MCHC RDW Plt Count MPV Neut % (Auto) Lymph % (Auto) [place] % (Auto) Eos % (Auto) Baso % (Auto) Neut # (Auto) Lymph # (Auto) [place] # (Auto) Eos # (Auto) Baso # (Auto) Nucleated RBC % (a uto) Nucleated RBCs # D-Dimer Sodium Potassium Chloride Carbon Dioxide Anion Gap BUN Creatinine GFR Calculation Glucose Estimat Average Gl ucose Hemoglobin A1c Calculated Osmolal ity Calcium Magnesium Iron TIBC % Saturation Unsat Iron Binding Total Bilirubin AST ALT Alkaline Phosphata se Troponin T Baselin e Troponin T 120 Min [place] Delta Troponin T Troponin T Hi Sens 6Hr 70.50 H Troponin T Hi Sens 6Hr Delta 9.50 NT-Pro-B Natriuret Pep Total Protein Albumin Globulin Triglycerides Cholesterol LDL Cholesterol, C alc HDL Cholesterol LDL/HDL Ratio Cholesterol/HDL Ra selena Procalcitonin Cancelled TSH Urine Color Yellow Urine Appearance Clear Urine pH 5 Ur Specific Gravit y 1.020 Urine Protein Neg Urine Glucose (UA) Norm Urine Ketones Negative Urine Blood Neg Urine Nitrate Negative Urine Bilirubin Neg Urine Urobilinogen Norm Ur Leukocyte Sandi ase Negative SARS-CoV-2 Ag (Rap id) 02/02/21 02/02/21 02/02/21 18:00 18:00 16:45 WBC RBC Hgb Hct MCV MCH MCHC RDW Plt Count MPV Neut % (Auto) Lymph % (Auto) [place] % (Auto) Eos % (Auto) Baso % (Auto) Neut # (Auto) Lymph # (Auto) [place] # (Auto) Eos # (Auto) Baso # (Auto) Nucleated RBC % (a uto) Nucleated RBCs # D-Dimer Sodium Potassium Chloride Carbon Dioxide Anion Gap BUN Creatinine GFR Calculation Glucose Estimat Average Gl ucose Hemoglobin A1c Calculated Osmolal ity Calcium Magnesium Iron 29 L TIBC 232 % Saturation 12.5 L Unsat Iron Binding 203 Total Bilirubin AST ALT Alkaline Phosphata se Troponin T Baselin e Troponin T 120 [address] [place] 66.66 H Delta Troponin T 5.66 Troponin T Hi Sens 6Hr Troponin T Hi Sens 6Hr Delta NT-Pro-B Natriuret Pep Total Protein Albumin Globulin Triglycerides Cholesterol LDL Cholesterol, C alc HDL Cholesterol LDL/HDL Ratio Cholesterol/HDL Ra selena Procalcitonin 0.14 TSH Urine Color Urine Appearance Urine pH Ur Specific Gravit y Urine Protein Urine Glucose (UA) Urine Ketones Urine Blood Urine Nitrate Urine Bilirubin Urine Urobilinogen Ur Leukocyte Sandi ase SARS-CoV-2 Ag (Rap id) Negative 02/02/21 02/02/21 02/02/21 16:05 16:05 16:05 WBC RBC Hgb Hct MCV MCH MCHC RDW Plt Count MPV Neut % (Auto) Lymph % (Auto) [place] % (Auto) Eos % (Auto) Baso % (Auto) Neut # (Auto) Lymph # (Auto) [place] # (Auto) Eos # (Auto) Baso # (Auto) Nucleated RBC % (a uto) Nucleated RBCs # D-Dimer 0.62 H Sodium 138 Potassium 4.6 Chloride 103 Carbon Dioxide 25 Anion Gap 14.6 BUN 19 Creatinine 0.9 GFR Calculation Not Reportable Glucose 91 Estimat Average Gl ucose Hemoglobin A1c Calculated Osmolal ity 288 Calcium 8.9 Magnesium 2.0 Iron TIBC % Saturation Unsat Iron Binding Total Bilirubin 0.7 AST 26 ALT 20 Alkaline Phosphata se 145 H Troponin T Baselin e 61 H Troponin T 120 [address] [place] Delta Troponin T Troponin T Hi Sens 6Hr Troponin T Hi Sens 6Hr Delta NT-Pro-B Natriuret Pep 2172 H Total Protein 6.7 Albumin 3.9 Globulin 2.8 Triglycerides Cholesterol LDL Cholesterol, C alc HDL Cholesterol LDL/HDL Ratio Cholesterol/HDL Ra selena Procalcitonin TSH 2.16 Urine Color Urine Appearance Urine pH Ur Specific Gravit y Urine Protein Urine Glucose (UA) Urine Ketones Urine Blood Urine Nitrate Urine Bilirubin Urine Urobilinogen Ur Leukocyte Sandi ase SARS-CoV-2 Ag (Rap id) 02/02/21 16:05 WBC 21.2 H RBC 4.26 Hgb 12.7 Hct 40.1 L MCV 94.1 H MCH 29.8 MCHC 31.7 RDW 21.7 H Plt Count 385 MPV 8.5 Neut % (Auto) 64.9 Lymph % (Auto) 15.0 [place] % (Auto) 13.6 Eos % (Auto) 2.2 Baso % (Auto) 1.0 Neut # (Auto) 13.76 H Lymph # (Auto) 3.2 [place] # (Auto) 2.9 H Eos # (Auto) 0.5 Baso # (Auto) 0.2 H Nucleated RBC % (a uto) 0 Nucleated RBCs # 0.0 D-Dimer Sodium Potassium Chloride Carbon Dioxide Anion Gap BUN Creatinine GFR Calculation Glucose Estimat Average Gl ucose Hemoglobin A1c Calculated Osmolal ity Calcium Magnesium Iron TIBC % Saturation Unsat Iron Binding Total Bilirubin AST ALT Alkaline Phosphata se Troponin T Baselin e Troponin T 120 [address] [place] Delta Troponin T Troponin T Hi Sens 6Hr Troponin T Hi Sens 6Hr Delta NT-Pro-B Natriuret Pep Total Protein Albumin Globulin Triglycerides Cholesterol LDL Cholesterol, C alc HDL Cholesterol LDL/HDL Ratio Cholesterol/HDL Ra selena Procalcitonin TSH Urine Color Urine Appearance Urine pH Ur Specific Gravit y Urine Protein Urine Glucose (UA) Urine Ketones Urine Blood Urine Nitrate Urine Bilirubin Urine Urobilinogen Ur Leukocyte Sandi ase SARS-CoV-2 Ag (Rap id) Addt'l Data from Hospital Stay: Laboratory Results WBC 17.5 10^3/uL (4.0 -10.0) H 02/03/21 04:30 RBC 4.10 10^6/uL (4.1 -5.3) 02/03/21 04:30 Hgb 12.4 g/dL (11.7-1 6.6) 02/03/21 04:30 Hct 38.7 % (42.0-52.0 ) L 02/03/21 04:30 MCV 94.4 fl (80-94) H 02/03/21 04:30 MCH 30.2 pg (28.0-34. 0) 02/03/21 04:30 MCHC 32.0 g/dL (30.0-3 6.0) 02/03/21 04:30 RDW 21.9 % (12.1-15.1 ) H 02/03/21 04:30 Plt Count 347 10^3/cmm (130 -400) 02/03/21 04:30 MPV 8.5 fL (7.4-10.4) 02/03/21 04:30 Neut % (Auto) 62.1 % 02/03/21 04:30 Lymph % (Auto) 14.2 % 02/03/21 04:30 [place] % (Auto) 15.6 % 02/03/21 04:30 Eos % (Auto) 3.2 % 02/03/21 04:30 Baso % (Auto) 1.1 % 02/03/21 04:30 Neut # (Auto) 10.83 10^3/uL (1. 8-7.7) H 02/03/21 04:30 Lymph # (Auto) 2.5 10^3/uL (0.8- 4.8) 02/03/21 04:30 [place] # (Auto) 2.7 10^3/uL (0.2- 0.9) H 02/03/21 04:30 Eos # (Auto) 0.6 10^3/uL (0.0- 0.8) 02/03/21 04:30 Baso # (Auto) 0.2 10^3/uL (0.0- 0.1) H 02/03/21 04:30 Nucleated RBC % (a uto) 0 % 02/03/21 04:30 Nucleated RBCs # 0.0 /100WBC 02/03/21 04:30 D-Dimer 0.62 ug/mIFEU (0- 0.59) H 02/02/21 16:05 Sodium 139 mmol/L (136-1 45) 02/03/21 04:30 Potassium 4.2 mmol/L (3.5-5 .1) 02/03/21 04:30 Chloride 106 mmol/L (98-10 7) 02/03/21 04:30 Carbon Dioxide 25 mmol/L (22-29) 02/03/21 04:30 Anion Gap 12.2 (5-19) 02/03/21 04:30 BUN 16 mg/dL (8-23) 02/03/21 04:30 Creatinine 0.9 mg/dL (0.7-1. 2) 02/03/21 04:30 GFR Calculation Not Reportable 02/03/21 04:30 Glucose 92 mg/dL (65-115) 02/03/21 04:30 Estimat Average Gl ucose 111 02/03/21 04:30 Hemoglobin A1c 5.5 % (4.0-6.0) 02/03/21 04:30 Calculated Osmolal ity 289 mOsm/kg (285- 295) 02/03/21 04:30 Calcium 8.7 mg/dL (8.5-10 .5) 02/03/21 04:30 Magnesium 2.0 mg/dL (1.7-2. 3) 02/02/21 16:05 Iron 29 ug/dL (59-158) L 02/02/21 18:00 TIBC 232 mcg/dl 02/02/21 18:00 % Saturation 12.5 % (20-50) L 02/02/21 18:00 Unsat Iron Binding 203 ug/dL (112-34 7) 02/02/21 18:00 Total Bilirubin 0.8 mg/dL (0.15-1 .2) 02/03/21 04:30 AST 22 U/L (0-40) 02/03/21 04:30 ALT 17 U/L (0-41) 02/03/21 04:30 Alkaline Phosphata se 145 IU/L (40-130) H 02/03/21 04:30 Troponin T Baselin e 61 ng/L (0-15) H 02/02/21 16:05 Troponin T [address] [place] 66.66 ng/L (0-15) H 02/02/21 18:00 Delta Troponin T 5.66 ABS# (0-10) 02/02/21 18:00 Troponin T Hi Sens 6Hr 70.50 ng/L (0-15) H 02/02/21 21:41 Troponin T Hi Sens 6Hr Delta 9.50 ng/L (0-12) 02/02/21 21:41 NT-Pro-B Natriuret Pep 2172 pg/mL (0-125 ) H 02/02/21 16:05 Total Protein 6.3 g/dL (6.6-8.7 ) L 02/03/21 04:30 Albumin 3.5 g/dL (3.5-5.2 ) 02/03/21 04:30 Globulin 2.8 g/dL (1.3-4.6 ) 02/03/21 04:30 Triglycerides 143 mg/dL (0-150) 02/03/21 04:30 Cholesterol 104 mg/dL (0-200) 02/03/21 04:30 LDL Cholesterol, C alc 52 mg/dL (50-129) 02/03/21 04:30 HDL Cholesterol 23 mg/dL (60-100) L 02/03/21 04:30 LDL/HDL Ratio 2.26 RATIO (0.00- 3.22) 02/03/21 04:30 Cholesterol/HDL Ra selena 4.52 mg/dL (1.0-5 .00) 02/03/21 04:30 Procalcitonin 0.14 ng/mL (0-0.5 ) 02/02/21 18:00 Procalcitonin Cancelled 02/02/21 18:00 TSH 2.16 uIU/mL (0.27 -4.20) 02/02/21 16:05 Urine Color Yellow (Yellow) 02/02/21 18:50 Urine Appearance Clear (CLEAR) 02/02/21 18:50 Urine pH 5 (5-7) 02/02/21 18:50 Ur Specific Gravit y 1.020 (1.005-1.0 30) 02/02/21 18:50 Urine Protein Neg (Negative) 02/02/21 18:50 Urine Glucose (UA) Norm (Normal) 02/02/21 18:50 Urine Ketones Negative (Negati ve) 02/02/21 18:50 Urine Blood Neg (Negative) 02/02/21 18:50 Urine Nitrate Negative (Negati ve) 02/02/21 18:50 Urine Bilirubin Neg (Negative) 02/02/21 18:50 Urine Urobilinogen Norm mg/dL (Negat nick) 02/02/21 18:50 Ur Leukocyte Sandi ase Negative (Negati ve) 02/02/21 18:50 SARS-CoV-2 Ag (Rap id) Negative (Negati ve) 02/02/21 16:45 Impressions Chest X-Ray 02/02/21 16:11 IMPRESSION: No acute chest abnormality. Chest/Abdomen/Pelvis CT 10/05/21 18:53 IMPRESSION: 1. No acute abnormality identified in the abdomen or pelvis. 2. 2.4 cm cortical lesion in the inferior right kidney is most likely a slightly proteinaceous cyst with Hounsfield units slightly greater than the strict criteria for a simple cyst. Recommend non-emergent MRI without and with contrast or non-emergent CT without and with contrast. MRI is preferred for masses under 1.5 cm. Radiation Dose CTDIVOL = (mGy): DLP = 1575.32~1575.32 (mGy-cm) IMPRESSION: 1. Scattered ground-glass opacities throughout the left lung, consistent with pneumonia. 2. 1.6 cm nodular consolidation in the peripheral left upper lobe is most likely pneumonia. CT follow-up in 2-3 months to document resolution is recommended. 3. Pulmonary nodules measuring up to 4 mm. For patients at low risk (minimal or absent history of smoking and of other known risk factors), no routine follow-up is indicated. For patients at high risk (history of smoking or of other known risk factors), consider optional CT Chest at 12 months. (Reference: Herlinda) Echocardiogram: CONCLUSIONS 1. Normal left ventricular size and systolic function with no diagnostic regional wall motion abnormalities. Left ventricular ejection fraction is estimated at 65-70 %. Normal diastolic function. 2. Normal right ventricular size and systolic function. 3. Probably mildly increased left atrial size. 4. No significant valvular abnormality. 5. No prior similar studies to compare. Vitals: Last Vital Signs Temp 98.0 F 02/03/21 03:37 Pulse 103 H 02/03/21 07:51 Resp 17 02/03/21 07:51 BP 110/76 02/03/21 07:51 Pulse Ox 94 02/03/21 07:51 Discharge Plan Discharge Patient Disposition: Home Condition: Stable Prescriptions: New Advair Diskus 250-50 mcg/dose Blister With Device 1 puff inhalation BID.RESPIRATORY 30 Days Qty: 30 RF: 0 ferrous gluconate 324 mg (37.5 mg iron) Tablet 324 mg PO BIDWM 30 Days Qty: 60 RF: 0 Spiriva with HandiHaler 18 mcg capsule, w/inhalation device 1 cap inhalation DAILY 30 Days Qty: 30 RF: 0 Cardizem CD 300 mg capsule,extended release 24hr 300 mg PO DAILY 30 Days Qty: 30 RF: 0 levofloxacin 500 mg tablet 500 mg PO Q24H 5 Days Qty: 5 RF: 0 Continued tamsulosin 0.4 mg capsule 0.4 mg PO DAILY@18 RF: 0 atorvastatin 40 mg tablet 40 mg PO DAILY@18 RF: 0 multivitamin Tablet 1 tab PO DAILY RF: 0 Glucosamine 500 mg Tablet 500 mg PO DAILY RF: 0 Vitamin C 500 mg Tablet 500 mg PO DAILY RF: 0 omeprazole 20 mg capsule,delayed release(DR/EC) 60 mg PO DAILY@18 RF: 0 tadalafil 20 mg tablet 20 mg PO . DIRECTED PRN (Reason: Erectile Dysfunction) RF: 0 Vitamin B-12 2 tab PO DAILY RF: 0 Changed aspirin 325 mg Tablet 325 mg PO DAILY 30 Days Qty: 30 RF: 0 Discontinued Mobic 15 mg tablet 15 mg PO DAILY@18 RF: 0 Discharge Orders: Discharge Order (Routine); Ordered 02/03/21 Ordered By: Cristobal West Other Ambulatory Orders: Pulmonary Function Screen with Bronchodilator (Routine) Timeframe: 1 Week [facility] - Location: Respiratory Therapy Ordered By: Cristobal West Referrals: Fabi Loving DO [Primary Care Provider] - 7-10 days Datar,Rob Doshi MD [Physician] - 2 weeks (Post Covid reactive airway disease, lung nodules) Discharge Diet: Cardiac Discharge Activity: Resume usual activity Patient Instructions: Opioid Safety Activity Restrictions/Additional Instructions: Cardizem CD has been added to your medication list. Please take aspirin 325 mg daily. Advair and Spiriva evaluation treatment. Please get pulmonary function test on set appointment. Please follow-up with pulmonology as directed. May repeat CT scan in 6 months to monitor for lung nodules Discharge Attestations Time Spent in Discharge Care*: greater than 30 min Specific Discharge Activities: educating patient, discussing with case maker/social workers/dc planners, documenting/other paperwork and evaluating patient/reviewing data Status at Discharge: Cognitive status at discharge: cognitively intact, Behavioral status at discharge: cooperative, Functional status at discharge: independent ambulation Overall status at discharge: patient is back to baseline Quality Metrics Clinical Quality Measures During this hospital stay, did patient experience: None Coding Level of Care Code Acute Chg FW DC note Diagnoses New onset a-fib I48.91 Abdominal pain R10.9
[2021-02-03] MEDS: FUROsemide 20 mg Tablet PO (13:05)
[2021-02-03] MEDS: dilTIAZem ER (24HR) 300 mg Capsule PO (13:05)
[2021-02-03 13:25] VITALS: BP 119/75; PULSE 77; RESP 19; O2SAT 97
--- NOTE | 2021-02-03 14:39 | PC.NURSE ---
discharge instructions given and explained.pt and verb understanding of instructions.discharged via w/c at this time,to exit.spouse to drive pt home.
--- NOTE | 2021-02-03 18:04 | USCV_ITS ---
Ponce Son Age: 70 Gender: M : 1950 Exam Date: 02/03/2021 06:15 Ordering Phys: Cristobal West MD Technologist: Danita Chappell Exam Location: [facility] [place] Indication: NEW ONSET A FIB BP: 118 / 74 HR: 76 Rhythm: Other Technical Quality: Adequate MEASUREMENTS (Male / Female) Normal Values 2D ECHO LV Diastolic Diameter PLAX 4.1 cm 4.2 - 5.9 / 3.9 - 5.3 cm LV Systolic Diameter PLAX 2.7 cm IVS Diastolic Thickness 2.0 cm 0.6 - 1.0 / 0.6 - 0.9 cm IVS Systolic Thickness 2.5 cm LVPW Diastolic Thickness 2.1 cm 0.6 - 1.0 / 0.6 - 0.9 cm LVPW Systolic Thickness 2.2 cm LVOT Diameter 2.0 cm LV Ejection Fraction 2D Teich 65.0 % LV Ejection Fraction MOD 2C 39.6 % LV Ejection Fraction 2C AL 34.8 % LA Diameter 2.9 cm LA Width 2.8 cm LA Height 4.1 cm RA Width 2.7 cm RA Height 4.0 cm Aorta at Sinotubular Diameter 2.9 cm M-MODE Aortic Annulus Diameter 3.6 cm LA Ao Ratio MM 0.8 MV E Point Septal Separation 0.5 cm DOPPLER AV Peak Velocity 104.0 cm/s LVOT Peak Velocity 80.0 cm/s AV Area Cont Eq vti 2.3 cm squared AV Area Cont Eq pk 2.4 cm squared MV Area PHT 4.6 cm squared Mitral E to A Ratio 1.7 MV E' Velocity 52.5 cm/s Mitral E to MV E' Ratio 8.5 Mitral E to LV E' Lateral Ratio 7.6 Mitral E to LV E' Septal Ratio 9.8 TR Peak Velocity 131.7 cm/s TR Peak Gradient 6.9 mmHg TR Mean Velocity 111.7 cm/s TR Mean Gradient 5.1 mmHg TR Velocity Time Integral 32.1 cm TV Peak E Velocity 43.0 cm/s Right Atrial Pressure 3.0 mmHg Pulmonary Artery Systolic Pressu 9.9 mmHg PV Peak Velocity 79.0 cm/s RV Acceleration Time 0.1 s RV Ejection Time 0.3 s RV AcT/ET 0.2 FINDINGS Left Ventricle Normal left ventricular size and systolic function with no diagnostic regional wall motion abnormalities. Left ventricular ejection fraction is estimated at 65-70 %. Normal diastolic function. Right Ventricle Normal right ventricular size and systolic function. Right ventricular systolic pressure 9.9 mmHg. Right Atrium Normal right atrial size. Right atrial pressure estimated at 3 mmHg. Left Atrium Probably mildly increased left atrial size. Mitral Valve Structurally normal mitral valve. No mitral valve stenosis. Trace mitral valve regurgitation. Aortic Valve Mildly thickened trileaflet aortic valve. No aortic valve stenosis. Trace aortic valve regurgitation. Tricuspid Valve Structurally normal tricuspid valve. Trace tricuspid valve regurgitation. Pulmonic Valve Pulmonic valve not well visualized. No pulmonary valve stenosis. Trace pulmonary valve regurgitation. Pericardium No pericardial effusion. Aorta Normal-sized aortic root. Normal-sized inferior vena cava with normal respiratory variation. CONCLUSIONS 1. Normal left ventricular size and systolic function with no diagnostic regional wall motion abnormalities. Left ventricular ejection fraction is estimated at 65-70 %. Normal diastolic function. 2. Normal right ventricular size and systolic function. 3. Probably mildly increased left atrial size. 4. No significant valvular abnormality. 5. No prior similar studies to compare. Leslie Field MD (Electronically Signed) Final Date: 03 February 2021 11:56 S
--- NOTE | 2021-02-04 09:00 | PC.SOCIAL ---
discharge follow up call made, spoke with patient and patients . patient reports monse sullivan in a fog heart rate is 60-80, spo2 97% on room air. patient denies chest pain or sob. patient is taking all new medications as prescribed. is aware of aspirin being changed and meloxicam dc'd. discussed dates and times of follow up appointments, patient is aware of those dates and times. chief writer let patient and know that centralized scheduling would be calling patient with date and time of pft. advised patient if he had chest pain, sob, decreased spo2, to come to the ED. patient and both verbalized understanding.
== END 2021-02-03 14:41 | disposition home or self-care (01) | DRG 310 ==
LOC: ER 16:43 → CSU 18:36
PROVIDERS: Admitting Provider Student in an Organized Health Care Education/Training Program; Emergency Provider Emergency Medicine; PCP Internal Medicine; Visit Provider Student in an Organized Health Care Education/Training Program
DX: I48.91 Unspecified atrial fibrillation (principal); Z86.16 Personal history of COVID-19; N40.0 Benign prostatic hyperplasia without lower urinary tract symptoms; Z86.711 Personal history of pulmonary embolism; G62.9 Polyneuropathy, unspecified; R10.9 Unspecified abdominal pain; Z82.49 Family history of ischemic heart disease and other diseases of the circulatory system
CPT/HCPCS: 36415; 71045; 71260; 74177; 80053; 80061; 81003; 83036; 83540; 83550; 83735; 83880; 84145; 84443; 84484; 85025; 85378; 86403; 87040; 87070; 87077; 87186; 87205; 87426; 87449; 87641; 93005; 93306; 96365; 96372; 96375; 99285; G0378; J1650; J3490; Q9967

== ENCOUNTER 2021-02-07 21:57 | Emergency (ER) | payer MEDICARE, SELFPAY ==
[2021-02-07] VITALS (24 sets, daily range): BP systolic 104–125; BP diastolic 65–83; PULSE 74–121; RESP 14–32; TEMP 37; O2SAT 93–98; BMI 28.1
--- NOTE | 2021-02-07 22:25 | XRR_ITS ---
PROCEDURE INFORMATION: Exam: XR Chest Exam date and time: 02/07/2021 10:25 PM Age: 70 years old Clinical indication: Other: Palpitations TECHNIQUE: Imaging protocol: XR of the chest. Views: 1 view. COMPARISON: CT chest abd pel w con* 02/02/2021 7:14 PM FINDINGS: Lungs: Mild nonspecific ground-glass infiltrates in the left lung. The right lung appears free of infiltrates. Pleural spaces: No pleural effusion. No pneumothorax. Heart/Mediastinum: No cardiomegaly. Bones/joints: Degenerative spine changes are noted. XR/XR chest 1V portable [id number] IMPRESSION: 1. Mild nonspecific ground-glass infiltrates in the left lung. This is unchanged from CT chest of 02/02/2021. 2. The right lung appears free of infiltrates. This is also unchanged. Radiation Dose CTDIVOL = (mGy): DLP = (mGy-cm)
--- NOTE | 2021-02-07 22:25 | ECG_ITS ---
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 Measurements Intervals [place] Rate: 91 P: [place]: QRS: 14 QRSD: 108 T: 66 QT: 338 QTc: 417 Interpretive Statements ATRIAL FLUTTER/TACHYCARDIA POSSIBLE RIGHT VENTRICULAR CONDUCTION DELAY [RSR (QR) IN V1/V2] Compared to ECG 02/02/2021 23:04:39 No significant changes Electronically Signed On 02-08-2021 15:13:59 CDT by Brando Singletary M.D. [id number]
[2021-02-07] MEDS: sodium chloride 0.9% 1,000 ML 999 ML IV (22:31)
[2021-02-07 22:46] LABS: Basophils # 0.2 10^3/uL (0.0-0.1); Hemoglobin 12.1 g/dL (11.7-16.6); Mean Corpuscular HGB Conc 31.8 g/dL (30.0-36.0); Mean Corpuscular Volume 94.5 fl (80-94); Monocytes # 1.8 10^3/uL (0.2-0.9); Nucleated Red Blood Cells % 0 %
[2021-02-07] MEDS: dilTIAZem 60 mg Tablet PO (22:54)
[2021-02-07 22:57] LABS: Troponin(5th) Baseline 25 ng/L (0-15)
[2021-02-07 22:58] LABS: Basophils % 1.9 %; Eosinophils # 0.6 10^3/uL (0.0-0.8); Eosinophils % 5.7 %; Lymphocytes # 2.3 10^3/uL (0.8-4.8); Lymphocytes % 21.6 %; Mean Corpuscular Hemoglobin 30.1 pg (28.0-34.0); Mean Platelet Volume 8.6 fL (7.4-10.4); Monocytes % 16.5 %; Neutrophils # 5.27 10^3/uL (1.8-7.7); Neutrophils % 48.8 %; Platelet Count 472 10^3/cmm (130-400); Red Blood Count 4.02 10^6/uL (4.1-5.3); Red Cell Distribution Width 21.9 % (12.1-15.1); White Blood Count 10.8 10^3/uL (4.0-10.0)
[2021-02-07 23:05] LABS: Alanine Aminotransferase 23 U/L (0-41); Albumin Level 3.8 g/dL (3.5-5.2); Alkaline Phosphatase 135 IU/L (40-130); Anion Gap 16.2 (5-19); Aspartate Amino Transferase 27 U/L (0-40); Blood Urea Nitrogen 16 mg/dL (8-23); Calcium 8.6 mg/dL (8.5-10.5); Carbon Dioxide 22 mmol/L (22-29); Chloride 110 mmol/L (98-107); Creatine Phosphokinase 172 U/L (39-308); Creatinine Clr Calc Pharmacy 62.0919; Globulin 2.8 g/dL (1.3-4.6); Glucose 112 mg/dL (65-115); NT Pro B Type Natriuretic Pept 902 pg/mL (0-125); Osmolality Calculated 300 mOsm/kg (285-295); Potassium 4.2 mmol/L (3.5-5.1); Sodium 144 mmol/L (136-145); Total Bilirubin 0.6 mg/dL (0.15-1.2); Total Protein 6.6 g/dL (6.6-8.7)
[2021-02-07 23:40] LABS: INR 1.02 (0.8-1.2)
[2021-02-07 23:41] LABS: Partial Thromboplastin Time 33.5 SECONDS (23.9-36.7)
[2021-02-07 23:42] LABS: Slide Review Slide Review Perform
[2021-02-08] VITALS (12 sets, daily range): BP systolic 109–121; BP diastolic 67–82; PULSE 73–90; RESP 15–28; TEMP 37; O2SAT 93–97
--- NOTE | 2021-02-08 03:15 | ED_ITS ---
HPI - Arrhythmia/Palpitations General: Chief Complaint: Arrhythmia/Palpitations Stated Complaint: feel like heart is fluttering Time Seen by Provider: 02/07/21 22:08 History of Present Illness: HPI narrative: 70-year-old male with atrial fibrillation history. He was observed overnight last week for the same. He had been controlled rate guzman on diltiazem daily. Earlier in the evening he began to get palpitations no overt chest discomfort. No syncope. He presents with an increased heart rate for MD complaint: heart racing and irregular heart beat Onset (ago): hour(s) Duration: constant Severity: moderate Context: occurred during rest Arrhythmia history: atrial fibrillation Associated symptoms: Reports short of breath; Deny anxiety, cough, diaphoresis, nausea, paresthesias, syncope or vomiting Review of Systems Const: Denies: diaphoresis Card: Denies: syncope GI: Denies: nausea or vomiting Psych: Denies: anxiety PFS ED PFSH: Medical History Abdominal pain Bilateral carpal tunnel syndrome Bilateral wrist pain BPH (benign prostatic hyperplasia) COVID-19 History of pulmonary embolism Peripheral neuropathy Surgical History History of hernia repair Family History Other CAD (coronary artery disease) Denies family history of Cancer Social History Smoking and tobacco status: never smoked Alcohol intake: never Caregiver/support person: Yes Lives independently: Yes Household members: family Housing: House Physical Exam Const: COMMON NORMALS: no acute distress, patient oriented x3, healthy appearing and alert HENMT: COMMON NORMALS: normocephalic HEAD & SCALP: normocephalic Eye: COMMON NORMALS: Equal, round and reactive pupils present and EOMs intact bilaterally PUPIL: Yes Equal, round and reactive pupils present Chest: COMMONS NORMALS: normal inspection of the chest Resp: COMMON NORMALS: normal respiratory effort, No use of accessory muscles and clear to auscultation bilaterally AUSCULTATION: clear to auscultation bilaterally Cardio: RATE: tachycardic RHYTHM: abnormal rhythm irregularly irregular GI: COMMON NORMALS: Normal to inspection, nondistended, normoactive bowel sounds present and Soft to palpation PALPATION: Yes Soft to palpation Neuro: COMMON NORMALS: patient oriented x3 SENSORIUM/ORIENTATION: Yes alert Course Vital Signs: Vital signs: Vital Signs Temperature 98.6 F 02/08/21 00:53 Pulse Rate 73 02/08/21 00:53 Respiratory Rate 18 02/08/21 00:53 Blood Pressure 110/80 02/08/21 00:53 Pulse Oximetry 95 02/08/21 00:53 MDM - Arrhythmia/Palpitations MDM Narrative: Medical decision making narrative: Patient was given 10 mg bolus of diltiazem with resolution of his tachycardia. He is given oral diltiazem to prevent rebound. His laboratory shows a CBC that is not remarkable. A BMP that is not terribly remarkable. His troponin is 25 at baseline, and it was significantly higher on his admission last week. His chest x-ray on my read is negative. It is compared to a CT last week, showing some minimal groundglass infiltrate which at the very least has not advanced. His vital signs are good at this point. He will be discharged on immediate release diltiazem as needed for breakthrough tachycardia, to follow-up with his basket assembler as an outpatient, or to return for continued uncontrolled heart rates. Lab Data: Labs: Lab Results 02/07/21 02/07/21 02/07/21 22:06 22:06 22:06 WBC 10.8 10^3/uL H 10 ^3/uL (4.0-10.0) RBC 4.02 10^6/uL L 10 ^6/uL (4.1-5.3) Hgb 12.1 g/dL g/dL (11.7-16.6) Hct 38.0 % L % (42.0-52.0) MCV 94.5 fl H fl (80-94) MCH 30.1 pg pg (28.0-34.0) MCHC 31.8 g/dL g/dL (30.0-36.0) RDW 21.9 % H % (12.1-15.1) Plt Count 472 10^3/cmm H 10 ^3/cmm (130-400) MPV 8.6 fL fL (7.4-10.4) Neut % (Auto) 48.8 % % Lymph % (Auto) 21.6 % % [place] % (Auto) 16.5 % % Eos % (Auto) 5.7 % % Baso % (Auto) 1.9 % % Neut # (Auto) 5.27 10^3/uL 10^3 /uL (1.8-7.7) Lymph # (Auto) 2.3 10^3/uL 10^3/ uL (0.8-4.8) [place] # (Auto) 1.8 10^3/uL H 10^ 3/uL (0.2-0.9) Eos # (Auto) 0.6 10^3/uL 10^3/ uL (0.0-0.8) Baso # (Auto) 0.2 10^3/uL H 10^ 3/uL (0.0-0.1) Nucleated RBC % (a uto) 0 % % Nucleated RBCs # 0.0 /100WBC /100W BC PT 13.70 SECONDS SEC ONDS (12.1-14.9) INR 1.02 (0.8-1.2) APTT 33.5 SECONDS SECO NDS (23.9-36.7) Sodium 144 mmol/L mmol/L (136-145) Potassium 4.2 mmol/L mmol/L (3.5-5.1) Chloride 110 mmol/L H mmol /L (98-107) Carbon Dioxide 22 mmol/L mmol/L (22-29) Anion Gap 16.2 (5-19) BUN 16 mg/dL mg/dL (8-23) Creatinine 1.1 mg/dL mg/dL (0.7-1.2) GFR Calculation Not Reportable Glucose 112 mg/dL mg/dL (65-115) Calculated Osmolal ity 300 mOsm/kg H mOs m/kg (285-295) Calcium 8.6 mg/dL mg/dL (8.5-10.5) Total Bilirubin 0.6 mg/dL mg/dL (0.15-1.2) AST 27 U/L U/L (0-40) ALT 23 U/L U/L (0-41) Alkaline Phosphata se 135 IU/L H IU/L (40-130) Creatine Kinase 172 U/L U/L (39-308) Troponin T Baselin e NT-Pro-B Natriuret Pep 902 pg/mL H pg/mL (0-125) Total Protein 6.6 g/dL g/dL (6.6-8.7) Albumin 3.8 g/dL g/dL (3.5-5.2) Globulin 2.8 g/dL g/dL (1.3-4.6) 02/07/21 22:06 WBC RBC Hgb Hct MCV MCH MCHC RDW Plt Count MPV Neut % (Auto) Lymph % (Auto) [place] % (Auto) Eos % (Auto) Baso % (Auto) Neut # (Auto) Lymph # (Auto) [place] # (Auto) Eos # (Auto) Baso # (Auto) Nucleated RBC % (a uto) Nucleated RBCs # PT INR APTT Sodium Potassium Chloride Carbon Dioxide Anion Gap BUN Creatinine GFR Calculation Glucose Calculated Osmolal ity Calcium Total Bilirubin AST ALT Alkaline Phosphata se Creatine Kinase Troponin T Baselin e 25 ng/L H ng/L (0-15) NT-Pro-B Natriuret Pep Total Protein Albumin Globulin Discharge Plan Discharge Patient Disposition: Home Clinical Impression: Atrial fibrillation Qualifiers: Atrial fibrillation type: persistent (not longstanding) Qualified Code(s): I48.19 - Other persistent atrial fibrillation Condition: Stable Prescriptions: New diltiazem HCl 30 mg tablet 30 mg PO Q8H PRN (Reason: fast heart rate) Qty: 30 RF: 0 No Action tamsulosin 0.4 mg capsule 0.4 mg PO DAILY@18 RF: 0 atorvastatin 40 mg tablet 40 mg PO DAILY@18 RF: 0 multivitamin Tablet 1 tab PO DAILY RF: 0 Glucosamine 500 mg Tablet 500 mg PO DAILY RF: 0 Vitamin C 500 mg Tablet 500 mg PO DAILY RF: 0 omeprazole 20 mg capsule,delayed release(DR/EC) 60 mg PO DAILY@18 RF: 0 tadalafil 20 mg tablet 20 mg PO . DIRECTED PRN (Reason: Erectile Dysfunction) RF: 0 Vitamin B-12 2 tab PO DAILY RF: 0 Advair Diskus 250-50 mcg/dose Blister With Device 1 puff inhalation BID.RESPIRATORY 30 Days Qty: 30 RF: 0 ferrous gluconate 324 mg (37.5 mg iron) Tablet 324 mg PO BIDWM 30 Days Qty: 60 RF: 0 Spiriva with HandiHaler 18 mcg capsule, w/inhalation device 1 cap inhalation DAILY 30 Days Qty: 30 RF: 0 Cardizem CD 300 mg capsule,extended release 24hr 300 mg PO DAILY 30 Days Qty: 30 RF: 0 aspirin 325 mg Tablet 325 mg PO DAILY 30 Days Qty: 30 RF: 0 levofloxacin 500 mg tablet 500 mg PO Q24H 5 Days Qty: 5 RF: 0 Discharge Orders: Discharge ED (Routine); Ordered 02/08/21 Ordered By: Venkata Desir Referrals: Fabi Loving, [Primary Care Provider] - Patient Instructions: A-fib (Atrial Fibrillation) (ED) Activity Restrictions/Additional Instructions: Continue to monitor your heart rate as you have been instructed. If your heart rate is high, you may take one of the pills you were prescribed tonight, wait up to 1 hour and a half. If the heart rate comes down appropriately continue your daily medication. If it does not come down return to the emergency department. Return also for chest discomfort, shortness of breath, fatigue, syncope or passing out, any other concerning symptoms. Follow-up with your doctors as scheduled. Coding Level of Care Code ED Service Engine Repairer for Natasha Salmeron
== END 2021-02-08 00:45 | disposition home or self-care (01) ==
PROVIDERS: Emergency Provider Emergency Medicine; PCP Internal Medicine
DX: I48.19 Other persistent atrial fibrillation (principal); Z79.82 Long term (current) use of aspirin; Z86.711 Personal history of pulmonary embolism; N40.0 Benign prostatic hyperplasia without lower urinary tract symptoms
CPT/HCPCS: 71045; 80053; 82550; 83880; 84484; 85025; 85610; 85730; 93005; 96361; 96374; 99285; J3490; J7030

== ENCOUNTER 2021-03-11 12:21 | Inpatient (IN) | payer MEDICARE, SELFPAY ==
--- NOTE | 2021-03-11 12:39 | ECG_ITS ---
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 Measurements Intervals [place] Rate: 51 P: 47 [place]: 188 QRS: -1 QRSD: 124 T: 45 QT: 464 QTc: 430 Interpretive Statements Possible atrial flutter with variable blocks POSSIBLE LATERAL MYOCARDIAL INFARCTION , OF INDETERMINATE AGE [30 ms Q WAVE IN I/aVL/V5/V6] Compared to ECG 02/07/2021 22:05:43 Myocardial infarct finding now present Electronically Signed On 03-11-2021 22:45:17 LIBRARY TECHNICAL ASSISTANT by Mateo Hernandez M.D. [id number]
[2021-03-11 12:41] VITALS: BP 110/60; PULSE 50; RESP 16; TEMP 36.8; O2SAT 96; BMI 28.0
--- NOTE | 2021-03-11 12:47 | PC.NURSE ---
ekg performed and seen by dr. Simons at 1239.
--- NOTE | 2021-03-11 13:18 | XR_ITS ---
WS: [id number] Portable AP upright chest, 03/11/2021 Clinical Data: chest pain Comparison: Portable chest, 02/07/2021. Findings: There is a patchy opacity in the periphery of the left lung unchanged. On a prior CT this i s described as a ground glass opacity. If there is no change or improvement within the next month for repeat CT chest would be helpful. The pulmonary vascularity is not increased. No pneumonia or pneumo thorax is seen. Right lung is clear. The heart is normal. XR/XR chest 1V portable [id number] Impression: No change in patchy opacity in periphery of left lung and recommend repeat ches t x-ray in one month and consider repeat CT chest.
--- NOTE | 2021-03-11 13:52 | ED_ITS ---
HPI - Arrhythmia/Palpitations General: Chief Complaint: Arrhythmia/Palpitations Stated Complaint: Flucutating heart rate/pulse Time Seen by Provider: 03/11/21 13:40 History of Present Illness: HPI narrative: 70-year-old male with history of A. fib was on Eliquis diltiazem and metoprolol presents due to palpitations. States started this morning while he was working on his garage. States that he recently had his medications for A. fib changed. States sensation is gone away now. Denies any chest pain or shortness of breath. Denies any fevers or chills. Was seen recently for same. During last visit had unremarkable D- dimer. Review of Systems Narrative: - CONSTITUTIONAL: Denies weight loss, fever and chills. - HEENT: Denies changes in vision and hearing. - RESPIRATORY: Denies SOB and cough. - CV: As above - GI: Denies abdominal pain, nausea, vomiting and diarrhea. - : Denies dysuria and urinary frequency. - MSK: Denies myalgia and joint pain. - SKIN: Denies rash and pruritus. - NEUROLOGICAL: Denies headache, weakness, numbness and syncope. - PSYCHIATRIC: Denies suicidal ideation PFS ED PFSH: Medical History (Updated 03/01/21 @ 13:50 by Leydi Rosenberg LPN) Abdominal pain Atrial flutter Bilateral carpal tunnel syndrome Bilateral wrist pain BPH (benign prostatic hyperplasia) COVID-19 Family history of ischemic heart disease and other diseases of the circulatory system History of pulmonary embolism HTN (hypertension) Peripheral neuropathy Surgical History History of hernia repair Family History (Updated 03/01/21 @ 13:51 by Leydi Rosenberg LPN) Other CAD (coronary artery disease) Social History Quit status (tobacco): has quit using tobacco Year quit tobacco: 2002 Former quit date comment: 1ppd x 50 years Alcohol intake: never Caregiver/support person: Yes Lives independently: Yes Household members: family Housing: House Physical Exam Narrative: EXAM NARRATIVE: - GENERAL: Alert and oriented x 3. No acute distress. Well-nourished. - EYES: EOMI. Anicteric. - HENT: Atraumatic, no C-spine tenderness. Moist mucous membranes. No scleral icterus. No cervical lymphadenopathy. - LUNGS: Clear to auscultation bilaterally. No accessory muscle use. Equal lung sounds bilaterally. No respiratory distress. - CARDIOVASCULAR: Regular rate and rhythm. No murmur. No JVD. - ABDOMEN: Soft, non-tender and non-distended. Negative CVA tenderness bilaterally, no rebound or guarding, negative Milligan sign. No palpable masses. - EXTREMITIES: No edema. Non-tender. - SKIN: No rashes or lesions. Warm. - NEUROLOGIC: No meningismus or focal neurological deficits. CN II-XII grossly intact. - PSYCHIATRIC: Cooperative. Appropriate mood and affect. Course Vital Signs: Vital signs: Vital Signs Temperature 98.2 F 03/11/21 12:41 Pulse Rate 50 L 03/11/21 12:41 Respiratory Rate 16 03/11/21 12:41 Blood Pressure 110/60 03/11/21 12:41 Pulse Oximetry 96 03/11/21 12:41 MDM - Arrhythmia/Palpitations MDM Narrative: Medical decision making narrative: 70-year-old male with history of A. fib presents due to palpitations. He is not Eliquis and is also on diltiazem metoprolol and flecainide. Cardiology has been actively adjusting his medication. EKG today reveals A. fib with a slow rate of 50. Otherwise he is hemodynamically stable afebrile and nontoxic-appearing. Remainder of lab work remarkable except for mildly elevated BNP but this is below his previous levels. X-ray does not reveal pneumothorax or consolidation. Discussed with cardiology and at this time recommend stopping diltiazem and admitting patient for likely cardioversion. Remainder of lab work and imaging reviewed. Discussed with hospitalist and they agreed patient would benefit from admission. Patient admitted in stable condition. Further evaluation management per hospitalist team. Lab Data: Labs: Lab Results 03/11/21 03/11/21 03/11/21 13:54 13:54 13:54 WBC 8.3 10^3/uL 10^3/ uL (4.0-10.0) RBC 4.07 10^6/uL L 10 ^6/uL (4.1-5.3) Hgb 12.2 g/dL g/dL (11.7-16.6) Hct 38.8 % L % (42.0-52.0) MCV 95.3 fl H fl (80-94) MCH 30.0 pg pg (28.0-34.0) MCHC 31.4 g/dL g/dL (30.0-36.0) RDW 23.7 % H % (12.1-15.1) Plt Count 275 10^3/cmm 10^3 /cmm (130-400) MPV 9.4 fL fL (7.4-10.4) Neut % (Auto) 39.2 % % Lymph % (Auto) 29.8 % % [place] % (Auto) 19.5 % % Eos % (Auto) 7.3 % % Baso % (Auto) 2.2 % % Neut # (Auto) 3.26 10^3/uL 10^3 /uL (1.8-7.7) Lymph # (Auto) 2.5 10^3/uL 10^3/ uL (0.8-4.8) [place] # (Auto) 1.6 10^3/uL H 10^ 3/uL (0.2-0.9) Eos # (Auto) 0.6 10^3/uL 10^3/ uL (0.0-0.8) Baso # (Auto) 0.2 10^3/uL H 10^ 3/uL (0.0-0.1) Nucleated RBC % (a uto) 0 % % Nucleated RBCs # 0.0 /100WBC /100W BC Sodium Cancelled Potassium Cancelled Chloride Cancelled Carbon Dioxide Cancelled Anion Gap Cancelled BUN Cancelled Creatinine Cancelled GFR Calculation Cancelled Glucose Cancelled Calculated Osmolal ity Cancelled Calcium Cancelled Total Bilirubin Cancelled AST Cancelled ALT Cancelled Alkaline Phosphata se Cancelled Troponin T Baselin e Cancelled NT-Pro-B Natriuret Pep Cancelled Total Protein Cancelled Albumin Cancelled Globulin Cancelled TSH Cancelled Free T4 Cancelled Urine Color Urine Appearance Urine pH Ur Specific Gravit y Urine Protein Urine Glucose (UA) Urine Ketones Urine Blood Urine Nitrate Urine Bilirubin Urine Urobilinogen Ur Leukocyte Sandi ase Urine RBC Urine WBC Ur Squamous Epith Cells Amorphous Sediment Urine Bacteria Urine Mucus 03/11/21 03/11/21 03/11/21 13:59 14:36 14:36 WBC RBC Hgb Hct MCV MCH MCHC RDW Plt Count MPV Neut % (Auto) Lymph % (Auto) [place] % (Auto) Eos % (Auto) Baso % (Auto) Neut # (Auto) Lymph # (Auto) [place] # (Auto) Eos # (Auto) Baso # (Auto) Nucleated RBC % (a uto) Nucleated RBCs # Sodium 140 mmol/L mmol/L (136-145) Potassium 4.0 mmol/L mmol/L (3.5-5.1) Chloride 105 mmol/L mmol/L (98-107) Carbon Dioxide 26 mmol/L mmol/L (22-29) Anion Gap 13.0 (5-19) BUN 14 mg/dL mg/dL (8-23) Creatinine 1.1 mg/dL mg/dL (0.7-1.2) GFR Calculation Not Reportable Glucose 92 mg/dL mg/dL (65-115) Calculated Osmolal ity 290 mOsm/kg mOsm/ kg (285-295) Calcium 8.7 mg/dL mg/dL (8.5-10.5) Total Bilirubin 0.5 mg/dL mg/dL (0.15-1.2) AST 26 U/L U/L (0-40) ALT 25 U/L U/L (0-41) Alkaline Phosphata se 116 IU/L IU/L (40-130) Troponin T Baselin e 13 ng/L ng/L (0-15) NT-Pro-B Natriuret Pep 617 pg/mL H pg/mL (0-125) Total Protein 6.5 g/dL L g/dL (6.6-8.7) Albumin 3.9 g/dL g/dL (3.5-5.2) Globulin 2.6 g/dL g/dL (1.3-4.6) TSH 2.40 uIU/mL uIU/m L (0.27-4.20) Free T4 1.22 ng/dL ng/dL (0.82-1.77) Urine Color Straw (Yellow) Urine Appearance Clear (CLEAR) Urine pH 5 (5-7) Ur Specific Gravit y 1.005 (1.005-1.030) Urine Protein Neg (Negative) Urine Glucose (UA) Norm (Normal) Urine Ketones Negative (Negative) Urine Blood Neg (Negative) Urine Nitrate Negative (Negative) Urine Bilirubin Neg (Negative) Urine Urobilinogen Norm mg/dL mg/dL (Negative) Ur Leukocyte Sandi ase Negative (Negative) Urine RBC Not Reportable Urine WBC 0-4 /hpf H /hpf (0-5) Ur Squamous Epith Cells 0-4 /hpf H /hpf (0-5) Amorphous Sediment Not Reportable Urine Bacteria Trace /hpf /hpf (NONE) Urine Mucus Trace /hpf /hpf EKG Data^: EKG 1: Other EKG comments: Chest X-Ray 03/11/21 13:18 Impression: No change in patchy opacity in periphery of left lung and recommend repeat chest x-ray in one month and consider repeat CT chest. A flutter with variable block and bradycardia at 51. No sign of acute ischemia or other acute abnormality. Discharge Plan Discharge Prescriptions: No Action Eliquis 5 mg tablet 5 mg PO BID Qty: 60 RF: 2 tamsulosin 0.4 mg capsule 0.4 mg PO DAILY@18 RF: 0 atorvastatin 40 mg tablet 40 mg PO DAILY@18 RF: 0 metoprolol tartrate 50 mg tablet 25 mg PO BID Qty: 45 RF: 2 flecainide 100 mg tablet 150 mg PO Q12H Qty: 60 RF: 0 multivitamin Tablet 1 tab PO DAILY RF: 0 ascorbic acid (vitamin C) [Vitamin C] 500 mg Tablet 1,000 mg PO BEDTIME RF: 0 omeprazole 20 mg capsule,delayed release(DR/EC) 60 mg PO DAILY@18 RF: 0 tadalafil 20 mg tablet 20 mg PO . DIRECTED PRN (Reason: Erectile Dysfunction) RF: 0 Advair Diskus 250-50 mcg/dose Blister With Device 1 inh INHALATION BID RF: 0 diltiazem HCl 240 mg capsule,extended release 24hr 240 mg PO QAM RF: 0 Vitamin D3 25 mcg (1,000 unit) Capsule 75 mcg PO BEDTIME RF: 0 Spiriva with HandiHaler 18 mcg Capsule, W/Inhalation Device 1 cap INHALATION DAILY RF: 0 ferrous gluconate 324 mg (38 mg iron) tablet 324 mg PO BID RF: 0 glucosamine HCl 500 mg Tablet 1,000 mg PO BEDTIME RF: 0 Coding Level of Care Code ED Combination Welder Apprentice for Chg Jaron
--- NOTE | 2021-03-11 14:01 | PC.NURSE ---
EKG completed in triage by silviculture teacher.
[2021-03-11 14:06] LABS: Basophils # 0.2 10^3/uL (0.0-0.1); Basophils % 2.2 %; Eosinophils # 0.6 10^3/uL (0.0-0.8); Eosinophils % 7.3 %; Hematocrit 38.8 % (42.0-52.0); Hemoglobin 12.2 g/dL (11.7-16.6); Lymphocytes # 2.5 10^3/uL (0.8-4.8); Lymphocytes % 29.8 %; Mean Corpuscular HGB Conc 31.4 g/dL (30.0-36.0); Mean Corpuscular Volume 95.3 fl (80-94); Mean Platelet Volume 9.4 fL (7.4-10.4); Monocytes # 1.6 10^3/uL (0.2-0.9); Monocytes % 19.5 %; Neutrophils # 3.26 10^3/uL (1.8-7.7); Neutrophils % 39.2 %; Nucleated Red Blood Cells % 0 %; Platelet Count 275 10^3/cmm (130-400); Red Blood Count 4.07 10^6/uL (4.1-5.3); Red Cell Distribution Width 23.7 % (12.1-15.1); White Blood Count 8.3 10^3/uL (4.0-10.0)
[2021-03-11 14:36] LABS: Urine Color Straw (Yellow)
[2021-03-11 14:37] LABS: Add Urine Culture? No; Bacteria Urine TRACE /hpf; Bilirubin Urine Neg (Negative); Blood Urine Neg (Negative); Glucose Urine UA Norm (Normal); Ketones Urine Negative (Negative); Leukocyte Esterase Urine Negative (Negative); Mucus Urine TRACE /hpf; Nitrate Urine Negative (Negative); Protein Urine Neg (Negative); Specific Gravity, Urine 1.005 (1.005-1.030); Squamous Epithelial Cell Urine 0-4 /hpf (0-5); Urine Appearance Clear (CLEAR); Urobilinogen Urine Norm (Negative); WBC Urine 0-4 /hpf (0-5); pH Urine 5 (5-7)
[2021-03-11 15:20] LABS: Alanine Aminotransferase 25 U/L (0-41); Albumin Level 3.9 g/dL (3.5-5.2); Alkaline Phosphatase 116 IU/L (40-130); Aspartate Amino Transferase 26 U/L (0-40); Blood Urea Nitrogen 14 mg/dL (8-23); Calcium 8.7 mg/dL (8.5-10.5); Carbon Dioxide 26 mmol/L (22-29); Chloride 105 mmol/L (98-107); Globulin 2.6 g/dL (1.3-4.6); Glucose 92 mg/dL (65-115); NT Pro B Type Natriuretic Pept 617 pg/mL (0-125); Osmolality Calculated 290 mOsm/kg (285-295); Sodium 140 mmol/L (136-145); Total Bilirubin 0.5 mg/dL (0.15-1.2); Total Protein 6.5 g/dL (6.6-8.7)
--- NOTE | 2021-03-11 15:21 | PC.NURSE ---
Pt placed on farm field manager immediately after being bedded into the room.
[2021-03-11 15:40] LABS: Troponin(5th) Baseline 13 ng/L (0-15)
[2021-03-11 15:45] LABS: Free T4 Free Thyroxine 1.22 ng/dL (0.82-1.77)
--- NOTE | 2021-03-11 15:51 | ECG_ITS ---
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 Measurements Intervals [place] Rate: 45 P: [place]: QRS: 1 QRSD: 119 T: 39 QT: 478 QTc: 416 Interpretive Statements ATRIAL FIBRILLATION WITH SLOW VENTRICULAR RESPONSE LATERAL MYOCARDIAL INFARCTION , PROBABLY RECENT [40+ ms Q WAVE AND/OR ST/T ABNORMALITY IN I/aVL/V5/V6] ACUTE [facility] Compared to ECG 02/07/2021 22:05:43 Myocardial infarct finding now present Atrial flutter no longer present Electronically Signed On 03-11-2021 22:58:44 BLINDSTITCH HEMMER by Mateo Hernandez M.D. [id number]
--- NOTE | 2021-03-11 17:47 | P.HP_ITS ---
Providers/Chief Complaint Admitting Physician: Margarito Hood MD Primary Care Provider: Prem Hatch MD Chief Complaint: Flucutating heart rate/pulse History of Present Illness 70 year old male with past medical history of Atrial flutter , COVID-19 last year, BPH, pulmonary embolism more than 20 years ago post abdominal hernia surgery came in with c/o dizziness started this morning, his atrial flutter medications were being adjusted by his manager city as outpatient, flecanide dose was increased to 150 mg po BID From 100 mg po BID as well as CARDIZEM Dose decreased to 180 From 300 likely he took 240 of Cardizem this morning and his H/R Dropped to 40s. When I saw the patient in ER he was in aflutter with variable block with H/R in 60s.He dnied any chest pain, dizziness ,SOB, Nausea, vomiting,cough, fever. Upon arrival in the ER he was worked up for above mention complain. Pertinent imaging studies : Xray chest : Normal EKG:Atrial Flutter with variable block His other labs have been reviewed. Review of Systems Const: Denies: fever(s), chills, body aches, change in appetite or diaphoresis Card: Denies: edema, swelling of feet/ankles, orthopnea or leg pain with exertion Resp: Denies: dyspnea, productive cough, wheezing or pain on inspiration GI: Denies: abdominal pain, nausea, vomiting, diarrhea or constipation : Denies: flank pain or difficulty urinating Musc: Denies: back pain, extremity pain or extremity swelling Neuro: Denies: headache(s), difficulty walking or confusion Medications/Allergies Home Medications Medication Instructions Recorded Confirmed Last Taken Type atorvastatin 40 mg tablet 40 mg PO DAILY@18 01/16/20 03/11/21 03/10/21 History tamsulosin 0.4 mg capsule 0.4 mg PO DAILY@18 01/16/20 03/11/21 03/10/21 History ascorbic acid (vitamin C) [Vitamin 1,000 mg PO BEDTIME 02/02/21 03/11/21 03/10/21 History C] multivitamin 1 tab PO DAILY 02/02/21 03/11/21 Unknown History omeprazole 60 mg PO DAILY@18 02/02/21 03/11/21 03/10/21 History tadalafil 20 mg PO . DIRECTED PRN 02/02/21 03/11/21 Unknown History apixaban 5 mg tablet 5 mg PO BID #60 tab 02/09/21 03/11/21 03/11/21 06:30 Rx flecainide 100 mg tablet 150 mg PO Q12H #60 tab 03/10/21 03/11/21 03/11/21 06:30 Rx metoprolol tartrate 50 mg tablet 25 mg PO BID #45 tab 03/10/21 03/11/21 03/11/21 06:30 Rx cholecalciferol (vitamin D3) 75 mcg PO BEDTIME 03/11/21 03/11/21 03/10/21 History [Vitamin D3] diltiazem HCl 240 mg PO QAM 03/11/21 03/11/21 03/11/21 06:30 History ferrous gluconate 324 mg PO BID 03/11/21 03/11/21 03/11/21 History fluticasone propion-salmeterol 1 inh INHALATION BID 03/11/21 03/11/21 03/11/21 History [Advair Diskus] glucosamine HCl 1,000 mg PO BEDTIME 03/11/21 03/11/21 03/10/21 History tiotropium bromide [Spiriva with 1 cap INHALATION DAILY 03/11/21 03/11/21 03/11/21 06:30 History HandiHaler] Allergies Allergy/AdvReac Type Severity Reaction Status Date / Time guaifenesin [From Mucinex] Allergy ADV-Weaknes Verified 03/11/21 14:46 s PFSH Acute PFSH: Medical History Abdominal pain Atrial flutter Bilateral carpal tunnel syndrome Bilateral wrist pain BPH (benign prostatic hyperplasia) COVID-19 Family history of ischemic heart disease and other diseases of the circulatory system History of pulmonary embolism HTN (hypertension) Peripheral neuropathy Surgical History History of hernia repair Family History Other CAD (coronary artery disease) Social History Quit status (tobacco): has quit using tobacco Year quit tobacco: 2002 Former quit date comment: 1ppd x 50 years Alcohol intake: never Caregiver/support person: Yes Lives independently: Yes Household members: family Housing: House Vitals/I&O/Wt Last Vital Signs Temp 98.2 F 03/11/21 12:41 Pulse 50 L 03/11/21 12:41 Resp 16 03/11/21 12:41 BP 110/60 03/11/21 12:41 Pulse Ox 96 03/11/21 12:41 Weight last 48 hrs Weight 81.193 kg Physical Exam Const: COMMON NORMALS: patient oriented x3 HENMT: COMMON NORMALS: normocephalic, atraumatic, hearing grossly normal bilaterally and external ears normal HEAD & SCALP: normocephalic and atraumatic EXTERNAL EAR: Yes external ears normal Eye: COMMON NORMALS: no scleral icterus GENERAL EYE: appearance normal, both eyes and all related structures Chest: COMMONS NORMALS: normal inspection of the chest and normal palpation of entire chest wall CHEST: Yes Symmetrical chest wall rise Resp: COMMON NORMALS: normal respiratory effort, No retractions, No use of accessory muscles and clear to auscultation bilaterally EFFORT & INSPECTION: Yes symmetric chest movement AUSCULTATION: clear to auscultation bilaterally Cardio: COMMON NORMALS: Peripheral pulses 2+ throughout PERIPHERAL PULSES: Peripheral pulses 2+ throughout OTHER: S1S2 Of variable Intensity, NO MRG , Irregeularly Irregular rthym GI: COMMON NORMALS: Normal to inspection, nondistended, normoactive bowel sounds present, Soft to palpation, non-tender, No hepatosplenomegaly present and no masses AUSCULTATION: Yes normoactive bowel sounds PALPATION: Yes Soft to palpation and Yes No hepatosplenomegaly present RECTAL EXAM: Yes deferred Extremity: COMMON NORMALS: no clubbing, cyanosis or edema and no pedal edema Neuro: COMMON NORMALS: patient oriented x3 Data : 03/11/21 13:54 03/11/21 14:36 A&P Assessment and plan (1) Atrial flutter: Continue tele Monitor EKG Currently on Flecanide as well as Eliquis, cardizem as well as metoprolol on hold due to bradycardia. Cardiology paln to Do TASHIA cardioversion Appreciate Cardiology Input. Status: Acute Qualifiers: Atrial flutter type: typical Qualified Code(s): I48.3 - Typical atrial flutter (2) HTN (hypertension): Currently well controlled Will resume home medications. Status: Acute Qualifiers: Hypertension type: primary hypertension Qualified Code(s): I10 - Essential (primary) hypertension (3) COPD (chronic obstructive pulmonary disease): Not In Exacerbation Status: Acute Qualifiers: COPD type: emphysema Emphysema type: centrilobular Qualified Code(s): J43.2 - Centrilobular emphysema Attestations Medical Necessity Statement*: Patient needs to be in hospital for the management of atrial flutter. Anticipated LOS Greater then 2 midnights. 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
[2021-03-11 18:48] LABS: Troponin 5 2HR 13.36 ng/L (0-15); Troponin 5 2HR Delta 0.36 ABS# (0-10)
--- NOTE | 2021-03-11 19:28 | PM.CONSULT ---
Providers/Reason For Consult Consulting Physician/Specialty*: Dr. Field, cardiology Reason for Consult*: Symptomatic Atrial flutter Attending Physician: Margarito Hood MD Primary Care Provider: Prem Hatch MD History of Present Illness History of Present Illness Ponce Son is a 70 year old male with past medical history of COVID-19 last year, BPH, pulmonary embolism more than 20 years ago post abdominal hernia surgery who presented to the ER from urology office when he was found to have atrial flutter with rapid ventricular response. Patient was having difficulty in breathing since he got over COVID-19 in March of last year. Blood work in the ER showed hemoglobin of 12, sodium 138, creatinine of 0.9, alkaline phosphatase of 145, proBNP of 3000, TSH of 2.16. He was started on Cardizem drip which was later transitioned over to oral Cardizem. He was discharged home on aspirin [address] abdomen pelvis chest was done which showed a negative signs for infection. CT chest did show pulmonary nodules which could be reactive or resolving Covid consolidations. Cultures have remained negative. He is here to establish care. He is oldest of 13 siblings. He has two brothers post CABG another brother with heart disease. Sister with stent at age 65 years. father with ME at 50 and needed CABGx 3 and then another bypass few years later. Mother had cancer. He had cardiac work up 12 years ago. EKG's showing typical atrial flutter with variable block, normal axis and possible Rv conduction delay. Non specific ST-T wave abnormality. He was seen in office in 02/26/21. He continues to complain of SOB and fatigue. BP running 99-129/ 58-72 mm Hg and HR 68-80 bpm. EKG showed atrial flutter with variable conduction. Possible old inferior ME. He was started on flecainide 100 mg BID and dose was increased to 150 mg BID. Cardizem was decreased from 300 mg to 180 mg but seems like he took 240 mg this morning. He became bradycardic with HR in 40's. He complains of SOB and not feeling well. Review of Systems Narrative: Const: Denies: fever(s) or chills Eyes: Denies: change in vision ENMT: Denies: throat pain, mouth pain or bleeding gums Card: Reports: chest pain (Left side ACW and left arm ), palpitations, irregular heart rhythm and dyspnea on exertion; Denies: swelling of feet/ankles, lightheadedness, syncope or pre-syncope Resp: Denies: wheezing or chest congestion GI: Denies: abdominal pain, nausea, vomiting or hematochezia : Reports: difficulty urinating and difficulty starting urination; Denies: dysuria or hematuria Musc: Reports: neck pain and back pain Skin/Breast: Denies: rash, pruritus, erythema or dry skin Neuro: Denies: headache(s) or dizziness Psych: Reports: anxiety; Denies: depression Endo: Reports: tired all the time; Denies: polydipsia Luis/Lymph: Reports: easy bruising; Denies: easy bleeding All/Imm: Denies: seasonal rhinorrhea Meds/Allergies Home Medications and Allergies Home Medications Medication Instructions Recorded Confirmed Last Taken Type atorvastatin 40 mg tablet 40 mg PO DAILY@18 01/16/20 03/11/21 03/10/21 History tamsulosin 0.4 mg capsule 0.4 mg PO DAILY@18 01/16/20 03/11/21 03/10/21 History ascorbic acid (vitamin C) [Vitamin 1,000 mg PO BEDTIME 02/02/21 03/11/21 03/10/21 History C] multivitamin 1 tab PO DAILY 02/02/21 03/11/21 Unknown History omeprazole 60 mg PO DAILY@18 02/02/21 03/11/21 03/10/21 History tadalafil 20 mg PO . DIRECTED PRN 02/02/21 03/11/21 Unknown History apixaban 5 mg tablet 5 mg PO BID #60 tab 02/09/21 03/11/21 03/11/21 06:30 Rx flecainide 100 mg tablet 150 mg PO Q12H #60 tab 03/10/21 03/11/21 03/11/21 06:30 Rx metoprolol tartrate 50 mg tablet 25 mg PO BID #45 tab 03/10/21 03/11/21 03/11/21 06:30 Rx cholecalciferol (vitamin D3) 75 mcg PO BEDTIME 03/11/21 03/11/21 03/10/21 History [Vitamin D3] diltiazem HCl 240 mg PO QAM 03/11/21 03/11/21 03/11/21 06:30 History ferrous gluconate 324 mg PO BID 03/11/21 03/11/21 03/11/21 History fluticasone propion-salmeterol 1 inh INHALATION BID 03/11/21 03/11/21 03/11/21 History [Advair Diskus] glucosamine HCl 1,000 mg PO BEDTIME 03/11/21 03/11/21 03/10/21 History tiotropium bromide [Spiriva with 1 cap INHALATION DAILY 03/11/21 03/11/21 03/11/21 06:30 History HandiHaler] Allergies Allergy/AdvReac Type Severity Reaction Status Date / Time guaifenesin [From Mucinex] Allergy ADV-Weaknes Verified 03/11/21 14:46 s PFSH Acute PFSH: Medical History Abdominal pain Atrial flutter Bilateral carpal tunnel syndrome Bilateral wrist pain BPH (benign prostatic hyperplasia) COVID-19 Family history of ischemic heart disease and other diseases of the circulatory system History of pulmonary embolism HTN (hypertension) Peripheral neuropathy Surgical History History of hernia repair Family History Other CAD (coronary artery disease) Social History Quit status (tobacco): has quit using tobacco Year quit tobacco: 2002 Former quit date comment: 1ppd x 50 years Alcohol intake: never Caregiver/support person: Yes Lives independently: Yes Household members: family Housing: House Vitals/I&O/Wt Last Vital Signs Temp 98.2 F 03/11/21 12:41 Pulse 50 L 03/11/21 12:41 Resp 16 03/11/21 12:41 BP 110/60 03/11/21 12:41 Pulse Ox 96 03/11/21 12:41 Weight last 48 hrs Weight 179 lb Physical Exam Narrative: EXAM NARRATIVE: Gen: NAD, ABAN HEENT/Neck: PERRL, No JVD CVS: S1, S2 irregular, No murmur, rub or gallop RS: CTAB/L, No wheezes, rale or rhonchi 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 PA: soft, NT, ND. No hepatomegaly Data Other Data: Attestation for Other Data: I personally reviewed and interpreted the following: Other data: 02/03/21 Echo CONCLUSIONS 1. Normal left ventricular size and systolic function with no diagnostic regional wall motion abnormalities. Left ventricular ejection fraction is estimated at 65-70 %. Normal diastolic function. 2. Normal right ventricular size and systolic function. 3. Probably mildly increased left atrial size. 4. No significant valvular abnormality. 5. No prior similar studies to compare. A&P Assessment and plan (1) Dyspnea on exertion: Status: Acute (2) Atrial flutter: Symptomatic atrial flutter [id number]=8/9 ; 1 for HTN, 1 for age -continue Flecainide and Eliquis. -Hold metoprolol and cardizem. -Plan for TASHIA/CV tomorrow. -Risks and benefits were discussed with the patients. Alternate management options were discussed with the patient as well. Possible complications were reviewed with the patient as well. Plan is to proceed for the procedure at the earliest. Status: Acute Qualifiers: Atrial flutter type: typical Qualified Code(s): I48.3 - Typical atrial flutter (3) HTN (hypertension): Status: Acute Qualifiers: Hypertension type: primary hypertension Qualified Code(s): I10 - Essential (primary) hypertension (4) BPH (benign prostatic hyperplasia): Status: Acute Qualifiers: Lower urinary tract symptom presence: unspecified whether lower urinary tract symptoms present Qualified Code(s): N40.0 - Benign prostatic hyperplasia without lower urinary tract symptoms (5) Peripheral neuropathy: Status: Acute Additional A&P Information Family h/o CAD Thank you for allowing me to participate in patient's care. Please feel free to call with questions or concerns. Consult Attestations Time Spent in Patient Care: 16 - 35 minutes (>than 50% of time spent in counselling and/or direct pt care on unit). 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
--- NOTE | 2021-03-11 19:51 | ECG_ITS ---
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 [email or web address]
[2021-03-11 20:00] VITALS: BP 145/68; PULSE 82; RESP 16; O2SAT 95
[2021-03-11 20:48] VITALS: TEMP 36.6
[2021-03-11 20:57] LABS: Troponin 5 6HR 13.88 ng/L (0-15); Troponin 5 6HR Delta 0.88 ng/L (0-12)
[2021-03-11 21:09] VITALS: PULSE 83; RESP 15; O2SAT 96
[2021-03-11] MEDS: ascorbic acid 500 mg Tablet 1000 MG PO (21:16)
[2021-03-11] MEDS: flecainide 100 mg Tablet 150 MG PO (21:17)
[2021-03-11] MEDS: atorvastatin 40 mg Tablet PO (21:17)
[2021-03-11] MEDS: tamsulosin 0.4 mg Capsule PO (21:18)
[2021-03-11] MEDS: pantoprazole DR 40 mg Tablet PO (21:18)
[2021-03-11] MEDS: apixaban 5 mg Tablet PO (21:24)
[2021-03-11 22:00] VITALS: PULSE 73
[2021-03-12] VITALS (14 sets, daily range): BP systolic 107–137; BP diastolic 68–82; PULSE 71–94; RESP 15–26; TEMP 36.4–36.8; O2SAT 93–95
[2021-03-12 05:05] LABS: Basophils # 0.1 10^3/uL (0.0-0.1); Basophils % 1.7 %; Eosinophils # 0.5 10^3/uL (0.0-0.8); Eosinophils % 6.2 %; Hematocrit 37.8 % (42.0-52.0); Hemoglobin 11.8 g/dL (11.7-16.6); Lymphocytes # 1.8 10^3/uL (0.8-4.8); Lymphocytes % 23.4 %; Mean Corpuscular HGB Conc 31.2 g/dL (30.0-36.0); Mean Corpuscular Hemoglobin 29.4 pg (28.0-34.0); Mean Corpuscular Volume 94.3 fl (80-94); Mean Platelet Volume 8.9 fL (7.4-10.4); Monocytes # 1.4 10^3/uL (0.2-0.9); Monocytes % 18.1 %; Neutrophils # 3.76 10^3/uL (1.8-7.7); Neutrophils % 48.4 %; Nucleated Red Blood Cells % 0 %; Platelet Count 281 10^3/cmm (130-400); Red Blood Count 4.01 10^6/uL (4.1-5.3); Red Cell Distribution Width 21.5 % (12.1-15.1); White Blood Count 7.8 10^3/uL (4.0-10.0)
[2021-03-12 05:23] LABS: Alanine Aminotransferase 22 U/L (0-41); Albumin Level 3.8 g/dL (3.5-5.2); Alkaline Phosphatase 110 IU/L (40-130); Anion Gap 14.9 (5-19); Aspartate Amino Transferase 24 U/L (0-40); Blood Urea Nitrogen 13 mg/dL (8-23); Calcium 8.8 mg/dL (8.5-10.5); Carbon Dioxide 25 mmol/L (22-29); Chloride 102 mmol/L (98-107); Globulin 2.7 g/dL (1.3-4.6); Glucose 93 mg/dL (65-115); Magnesium 2.1 mg/dL (1.7-2.3); Osmolality Calculated 286 mOsm/kg (285-295); Potassium 3.9 mmol/L (3.5-5.1); Sodium 138 mmol/L (136-145); Total Bilirubin 0.6 mg/dL (0.15-1.2); Total Protein 6.5 g/dL (6.6-8.7)
[2021-03-12] MEDS: flecainide 100 mg Tablet 150 MG PO ×2 (05:29→18:24)
--- NOTE | 2021-03-12 07:30 | PC.NURSE ---
Pt sitting up in bed resting with eyes open talking to staff. Pt resp even and non-labored no distress or sob noted. Pt had no c/o pain or discomfort at the present time. No needs voiced at the present time. Call light in reach. Will cont to monitor.
[2021-03-12 09:39] LABS: SARS Covid-2 Antigen Negative (Negative)
--- NOTE | 2021-03-12 09:51 | P.PN_ITS ---
Subjective Subjective: Interval history: Patient was seen this morning. Remains in atrial flutter. His heart rate is running 70s to 90s beats per minute Medications: Reviewed: Yes Vitals/I&O/Wt Last Vital Signs Temp 98.3 F 03/12/21 07:50 Pulse 81 03/12/21 09:45 Resp 20 H 03/12/21 09:45 BP 112/74 03/12/21 07:50 Pulse Ox 94 03/12/21 09:45 03/11/21 03/12/21 03/12/21 22:59 06:59 14:59 Intake Total 150 / 150 Output Total 900 / 900 Balance -750 / -750 Weight last 48 hrs Weight 184 lb 1.6 oz Weight 186 lb 12.8 oz Weight 179 lb Physical Exam Narrative: EXAM NARRATIVE: Gen: NAD, ABAN HEENT/Neck: PERRL, No JVD CVS: S1, S2 irregular, No murmur, rub or gallop RS: CTAB/L, No wheezes, rale or rhonchi [employer]: AAOx 3, No FND Ext: No edema, cyanosis or clubbing. PA: soft, NT, ND. No hepatomegaly Data : 03/12/21 04:11 03/12/21 04:11 A&P Assessment and plan (1) Dyspnea on exertion: Given extensive family h/o CAD, I will plan for stress test later. Status: Acute (2) Atrial flutter: Symptomatic atrial flutter [id number]=0/9 ; 1 for HTN, 1 for age -continue Flecainide and Eliquis. -Hold metoprolol and cardizem. -Plan for TASHIA/CV later today. -Risks and benefits were discussed with the patients. Alternate management options were discussed with the patient as well. Possible complications were reviewed with the patient as well. Plan is to proceed for the procedure at the earliest. -Patient underwent successful cardioversion after ruling out left atrial appendage thrombus by TASHIA. -We restart metoprolol 25 mg twice a day this evening based on his heart rate and blood pressure. Status: Acute Qualifiers: Atrial flutter type: typical Qualified Code(s): I48.3 - Typical atrial flutter (3) HTN (hypertension): Status: Acute Qualifiers: Hypertension type: primary hypertension Qualified Code(s): I10 - Essential (primary) hypertension (4) BPH (benign prostatic hyperplasia): Status: Acute Qualifiers: Lower urinary tract symptom presence: unspecified whether lower urinary tract symptoms present Qualified Code(s): N40.0 - Benign prostatic hyperplasia without lower urinary tract symptoms (5) Peripheral neuropathy: Status: Acute Additional A&P Information Family h/o CAD H/O Yu's esopahgus: [place] [facility] [place] no h/o GI bleed Thank you for allowing me to participate in patient's care. Please feel free to call with questions or concerns. Attestations Medical Necessity Statement*: Needs hospital stay post cardioversion for medication titration Time Spent in Patient Care: Greater than 35 minutes (>than 50% of time spent in counselling and/or direct pt care on unit) . Critical Care Time: The high probability of a clinically significant, sudden or life threatening deterioration of the patient's [cardiac] system(s) required my full and direct attention, intervention and personal management. The critical care time is as shown. This time is in addition to time spent performing any reported procedures but includes the following: [x] Data and vital sign review and interpretation [x] Patient assessment, examination and intervention [x] Documentation [x] Medication orders and management Critical Care Time (min): 20 Procedures Time out/Consent Time Out Performed: Yes Consent for Procedure: Consent obtained from patient, Risks & Benefits reviewed and Agrees to proceed with procedure Procedure Narrative TASHIA Procedure note Indication: Symptomatic atrial flutter Sedation: Propofol by anesthesia Procedure was explained to the patient in detail and informed consent was obtained. Timeout was called. After achieving adequate sedation, the probe was inserted on third attempt. No blood on the probe post procedure. Prelim report: Normal left ventricle size and systolic function. No left atrial or left atrial appendage mass or thrombus visualized. No ASD or PFO identified. Full report to follow. Cardioversion procedure note. Indication: Symptomatic atrial flutter Anticoagulation: Eliquis After ensuring no left atrial or left atrial appendage thrombus, pads were placed anteroposteriorly. He received 150 J of synchronized biphasic shock ?1 with scientologist of normal sinus rhythm. Patient tolerated the procedure well. 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 Coding Level of Care Code Acute Rn Production for [facility] Diagnoses Dyspnea on exertion R06.00 Atrial flutter I48.3 Atrial flutter type: typical HTN (hypertension) I10 Hypertension type: primary hypertension BPH (benign prostatic hyperplasia) N40.0 Lower urinary tract symptom presence: unspecified whether lower urinary tract symptoms present Peripheral neuropathy G62.9
[2021-03-12] MEDS: apixaban 5 mg Tablet PO ×2 (10:02→18:25)
--- NOTE | 2021-03-12 10:51 | ANES.PREANE2 ---
Pre-Anesthetic Assessment Pre-Anesthetic Assessment: Height/Weight: Height 1.7 m Weight 83.506 kg Temp Pulse Resp BP Pulse Ox 98.3 F 81 20 H 112/74 94 03/12/21 07:50 03/12/21 09:45 03/12/21 09:45 03/12/21 07:50 03/12/21 09:45 Preop Diagnosis: A fib Proposed Procedure: Operation Date: 03/12/21 12:00 Proposed Procedures p TASHIA(Not Applicable) - Leslie Field MD Familial anesthetic complications: none Was Beta Stevie taken within 24 hours: Yes Was Clonidine taken within 24 hours: N/A Last intake: > 8 hrs Social: Social History: No alcohol and No tobacco Comment: former smoker Exam: Pre-Anes Outpt Exam: alert, oriented x 3, clear to auscultation bilaterally and regular rate & rhythm Additional Exam Findings (including area of procedure): A fib Airway: Cervical ROM: WNL MP: 3 Dentition: False Pulmonary: Comments: covid last year CV/HEM: CV/HEM: Afib and HTN Comments: PE 20 years ago after an abdominal surgery GI: Comments: agatha's esophagus Anesthetic Plan: ASA status: 3 Anesthesia: MAC Risk of > 500 ml blood loss (7ml/kg in children): No Meds/Allergies Current Medications: Current Medications Generic Name Dose Route Start Last Admin Trade Name Freq PRN Reason Stop Dose Admin Apixaban 5 mg 03/11/21 18:00 03/12/21 10:02 Apixaban 5 Mg Ta blet PO 5 mg BID KATT Administration Ascorbic Acid 1,000 mg 03/11/21 21:00 03/11/21 21:16 Ascorbic Acid 50 0 Mg Tablet PO 1,000 mg BEDTIME KATT Administration Atorvastatin Calci um 40 mg 03/11/21 18:00 03/11/21 21:17 Atorvastatin 40 Mg Tablet PO 40 mg DAILY@18 KATT Administration Flecainide Acetate 150 mg 03/11/21 17:45 03/12/21 05:29 Flecainide 100 M g Tablet PO 150 mg Q12H KATT Administration Pantoprazole Sodiu m 40 mg 03/11/21 18:00 03/11/21 21:[address] 40 Mg Tablet PO 40 mg DAILY@18 KATT Administration Tamsulosin HCl 0.4 mg 03/11/21 18:00 03/11/21 21:18 Tamsulosin 0.4 M g Capsule PO 0.4 mg DAILY@18 KATT Administration PFSH Anesthesia PFSH: Medical History Abdominal pain Atrial flutter Bilateral carpal tunnel syndrome Bilateral wrist pain BPH (benign prostatic hyperplasia) COVID-19 Family history of ischemic heart disease and other diseases of the circulatory system History of pulmonary embolism HTN (hypertension) Peripheral neuropathy Surgical History History of hernia repair Family History Other CAD (coronary artery disease) Social History Quit status (tobacco): has quit using tobacco Year quit tobacco: 2002 Former quit date comment: 1ppd x 50 years Alcohol intake: never Caregiver/support person: Yes Lives independently: Yes Household members: family Housing: House Data Anesthesia CBC & Chem 7: 03/12/21 04:11 03/12/21 04:11 Other Labs: Laboratory Results - last 48 hr 03/11/21 03/11/21 03/11/21 13:54 13:54 13:54 WBC 8.3 RBC 4.07 L Hgb 12.2 Hct 38.8 L MCV 95.3 H MCH 30.0 MCHC 31.4 RDW 23.7 H Plt Count 275 MPV 9.4 Neut % (Auto) 39.2 Lymph % (Auto) 29.8 [place] % (Auto) 19.5 Eos % (Auto) 7.3 Baso % (Auto) 2.2 Neut # (Auto) 3.26 Lymph # (Auto) 2.5 [place] # (Auto) 1.6 H Eos # (Auto) 0.6 Baso # (Auto) 0.2 H Nucleated RBC % (auto) 0 Nucleated RBCs # 0.0 Sodium Cancelled Potassium Cancelled Chloride Cancelled Carbon Dioxide Cancelled Anion Gap Cancelled BUN Cancelled Creatinine Cancelled GFR Calculation Cancelled Glucose Cancelled Calculated Osmolality Cancelled Calcium Cancelled Magnesium Total Bilirubin Cancelled AST Cancelled ALT Cancelled Alkaline Phosphatase Cancelled Troponin T Baseline Cancelled Troponin T 120 Minute Delta Troponin T Troponin T Hi Sens 6Hr Troponin T Hi Sens 6Hr Delta NT-Pro-B Natriuret Pep Cancelled Total Protein Cancelled Albumin Cancelled Globulin Cancelled TSH Cancelled Free T4 Cancelled Urine Color Urine Appearance Urine pH Ur Specific [place] Urine Protein Urine Glucose (UA) Urine Ketones Urine Blood Urine Nitrate Urine Bilirubin Urine Urobilinogen Ur Leukocyte Esterase Urine RBC Urine WBC Ur Squamous Epith Cells Amorphous Sediment Urine Bacteria Urine Mucus SARS-CoV-2 Ag (Rapid) 03/11/21 03/11/21 03/11/21 13:59 14:36 14:36 WBC RBC Hgb Hct MCV MCH MCHC RDW Plt Count MPV Neut % (Auto) Lymph % (Auto) [place] % (Auto) Eos % (Auto) Baso % (Auto) Neut # (Auto) Lymph # (Auto) [place] # (Auto) Eos # (Auto) Baso # (Auto) Nucleated RBC % (auto) Nucleated RBCs # Sodium 140 Potassium 4.0 Chloride 105 Carbon Dioxide 26 Anion Gap 13.0 BUN 14 Creatinine 1.1 GFR Calculation Not Reportable Glucose 92 Calculated Osmolality 290 Calcium 8.7 Magnesium Total Bilirubin 0.5 AST 26 ALT 25 Alkaline Phosphatase 116 Troponin T Baseline 13 Troponin T 120 Minute Delta Troponin T Troponin T Hi Sens 6Hr Troponin T Hi Sens 6Hr Delta NT-Pro-B Natriuret Pep 617 H Total Protein 6.5 L Albumin 3.9 Globulin 2.6 TSH 2.40 Free T4 1.22 Urine Color Straw Urine Appearance Clear Urine pH 5 Ur Specific [place] 1.005 Urine Protein Neg Urine Glucose (UA) Norm Urine Ketones Negative Urine Blood Neg Urine Nitrate Negative Urine Bilirubin Neg Urine Urobilinogen Norm Ur Leukocyte Esterase Negative Urine RBC Not Reportable Urine WBC 0-4 H Ur Squamous Epith Cells 0-4 H Amorphous Sediment Not Reportable Urine Bacteria Trace Urine Mucus Trace SARS-CoV-2 Ag (Rapid) 03/11/21 03/11/21 03/12/21 17:50 20:33 04:11 WBC 7.8 RBC 4.01 L Hgb 11.8 Hct 37.8 L MCV 94.3 H MCH 29.4 MCHC 31.2 RDW 21.5 H Plt Count 281 MPV 8.9 Neut % (Auto) 48.4 Lymph % (Auto) 23.4 [place] % (Auto) 18.1 Eos % (Auto) 6.2 Baso % (Auto) 1.7 Neut # (Auto) 3.76 Lymph # (Auto) 1.8 [place] # (Auto) 1.4 H Eos # (Auto) 0.5 Baso # (Auto) 0.1 Nucleated RBC % (auto) 0 Nucleated RBCs # 0.0 Sodium Potassium Chloride Carbon Dioxide Anion Gap BUN Creatinine GFR Calculation Glucose Calculated Osmolality Calcium Magnesium Total Bilirubin AST ALT Alkaline Phosphatase Troponin T Baseline Troponin T 120 Minute 13.36 Delta Troponin T 0.36 Troponin T Hi Sens 6Hr 13.88 Troponin T Hi Sens 6Hr Delta 0.88 NT-Pro-B Natriuret Pep Total Protein Albumin Globulin TSH Free T4 Urine Color Urine Appearance Urine pH Ur Specific [place] Urine Protein Urine Glucose (UA) Urine Ketones Urine Blood Urine Nitrate Urine Bilirubin Urine Urobilinogen Ur Leukocyte Esterase Urine RBC Urine WBC Ur Squamous Epith Cells Amorphous Sediment Urine Bacteria Urine Mucus SARS-CoV-2 Ag (Rapid) 03/12/21 03/12/21 04:11 08:56 WBC RBC Hgb Hct MCV MCH MCHC RDW Plt Count MPV Neut % (Auto) Lymph % (Auto) [place] % (Auto) Eos % (Auto) Baso % (Auto) Neut # (Auto) Lymph # (Auto) [place] # (Auto) Eos # (Auto) Baso # (Auto) Nucleated RBC % (auto) Nucleated RBCs # Sodium 138 Potassium 3.9 Chloride 102 Carbon Dioxide 25 Anion Gap 14.9 BUN 13 Creatinine 1.0 GFR Calculation Not Reportable Glucose 93 Calculated Osmolality 286 Calcium 8.8 Magnesium 2.1 Total Bilirubin 0.6 AST 24 ALT 22 Alkaline Phosphatase 110 Troponin T Baseline Troponin T 120 Minute Delta Troponin T Troponin T Hi Sens 6Hr Troponin T Hi Sens 6Hr Delta NT-Pro-B Natriuret Pep Total Protein 6.5 L Albumin 3.8 Globulin 2.7 TSH Free T4 Urine Color Urine Appearance Urine pH Ur Specific [place] Urine Protein Urine Glucose (UA) Urine Ketones Urine Blood Urine Nitrate Urine Bilirubin Urine Urobilinogen Ur Leukocyte Esterase Urine RBC Urine WBC Ur Squamous Epith Cells Amorphous Sediment Urine Bacteria Urine Mucus SARS-CoV-2 Ag (Rapid) Negative Cardiac Studies: Echocardiogram 02/03/21
--- NOTE | 2021-03-12 13:00 | USCV_ITS ---
Ponce Son Age: 70 Gender: M : 1950 Exam Date: 03/12/2021 13:37 Ordering Phys: Leslie Field MD ([email or web address]) Technologist: Chapis Dyson Exam Location: [facility] – [place] Indication: TIA BP: / HR: Rhythm: Sinus Technical Quality: Good MEASUREMENTS (Male / Female) Normal Values Medications Patient given IV sedation by anesthesia service, for details please refer to the anesthesia report. Complications Patient tolerated procedure well. None. Proc. Components The TASHIA probe was passed into the posterior pharynx , mid- esophagus, distal esophagus, and gastric fundus. The patient tolerated the procedure well and there were no complications. FINDINGS Left Ventricle Normal left ventricular size, systolic function and wall thickness, with no regional wall motion abnormalities. Left ventricular ejection fraction is estimated at 65 %. Right Ventricle Normal right ventricular size and systolic function. Right Atrium Normal right atrial size. Left Atrium Normal left atrial size. LA Appendage Normal left atrial appendage. Normal flow velocities in the left atrial appendage. No thrombus visualized in the left atrial appendage. IA Septum Normal interatrial septum. No patent foramen ovale. No evidence for an atrial septal defect. Mitral Valve Structurally normal mitral valve. No mitral valve stenosis. Trace mitral valve regurgitation. Aortic Valve Structurally normal trileaflet aortic valve. No aortic valve stenosis. No aortic valve regurgitation. Tricuspid Valve Structurally normal tricuspid valve. No tricuspid valve stenosis. Trace to mild tricuspid valve regurgitation. Pulmonic Valve Structurally normal pulmonic valve. Trace pulmonary valve regurgitation. Pericardium No pericardial effusion. Aorta Dilated aortic root measured at 42 mm. Normal sized ascending and descending aorta. No disscetion or atheroma. CONCLUSIONS 1. Normal left ventricular size, systolic function and wall thickness, with no regional wall motion abnormalities. Left ventricular ejection fraction is estimated at 65 %. 2. Dilated aortic root measured at 42 mm. 3. No left atrial or left atrial appendage thrombus. Leslie Field MD (Electronically Signed) Final Date: 14 March 2021 19:04 S
[2021-03-12] MEDS: sodium chloride 0.9% 1,000 ML 30 ML IV (13:01)
--- NOTE | 2021-03-12 13:13 | PC.CHAP ---
Pastoral Care Encounter/Spiritual Assessment Type of Contact [] Declined funeral attendant visit [] Patient/Family/Request visit [] Outpatient visit [] Follow-up visit [] Physician referral [] Code/Alert [xx] Routine visit [] Staff referral [] Actively dying [] Patient sleeping [] Family support [] [] Out of room [] Palliative care [] [] Receiving care in room [] Pre-surgical visit [] Trauma [] Long length of stay [] ICU visit [] Other: Relational/Emotional Strength [xx] Patient feels connected with others/family/visitors/staff [] Distress [] Loneliness/isolation [] Abandonment Spirituality of Patient [xx] Person of Annika [] Attends Anglican of their Annika [xx] Believes in Prayer [xx] Reads Bible or Sikh materials [] There are Spiritual issues to be addressed 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 Interventions [] Prayer [] Active listening [] Non-anxious presence [] Spiritual/emotional support [] Crisis/trauma care [] Spiritual counseling [] Bereavement support [] Provided bereavement packet [xx] Provided Bible/devotional materials [] Provided toy/stuffed animal, coloring book to patient or family member [] Provided Communion [] Anointing/Rufe [] Salvation [xx] Completed spiritual assessment [] Other: Impact on Illness or Injury [] Angry [] Fearful [] Anxious [] Often cries [] Exhaustion [] Unable to work [] Unable to attend religion [] Unable to walk/stand [] Unable to read [] Unable to drive [] Unable to eat/drink [] Unable to sleep [] Unable to be with family [] Patient intubated [] Other: Summary Patient is more concerned about a wayward son than himself. Prayed for son. Patient expects to be discharged later today. Time spent with patient 5 minutes
--- NOTE | 2021-03-12 13:44 | PM.PN ---
Subjective Subjective: Interval history: Patient was seen and examined this morning continues to be in atrial flutter with well-controlled rate with good fluctuation on minimal exertion.Current plan is TASHIA cardioversion today. Medications: Reviewed: Yes Vitals/I&O/Wt Last Vital Signs Temp 97.6 F 03/12/21 11:53 Pulse 94 03/12/21 11:53 Resp 15 03/12/21 11:53 BP 112/78 03/12/21 11:53 Pulse Ox 95 03/12/21 11:53 03/11/21 03/12/21 03/12/21 22:59 06:59 14:59 Intake Total 150 / 150 Output Total 900 / 900 Balance -750 / -750 Weight last 48 hrs Weight 83.506 kg Weight 84.731 kg Weight 81.193 kg Physical Exam Const: COMMON NORMALS: patient oriented x3 HENMT: COMMON NORMALS: normocephalic, atraumatic, hearing grossly normal bilaterally and external ears normal HEAD & SCALP: normocephalic and atraumatic EXTERNAL EAR: Yes external ears normal Eye: COMMON NORMALS: no scleral icterus GENERAL EYE: appearance normal, both eyes and all related structures Chest: COMMONS NORMALS: normal inspection of the chest and normal palpation of entire chest wall CHEST: Yes Symmetrical chest wall rise Resp: COMMON NORMALS: normal respiratory effort, No retractions, No use of accessory muscles and clear to auscultation bilaterally EFFORT & INSPECTION: Yes symmetric chest movement AUSCULTATION: clear to auscultation bilaterally Cardio: COMMON NORMALS: Peripheral pulses 2+ throughout PERIPHERAL PULSES: Peripheral pulses 2+ throughout OTHER: S1S2 Of variable Intensity, NO MRG , Irregeularly Irregular rthym GI: COMMON NORMALS: Normal to inspection, nondistended, normoactive bowel sounds present, Soft to palpation, non-tender, No hepatosplenomegaly present and no masses AUSCULTATION: Yes normoactive bowel sounds PALPATION: Yes Soft to palpation and Yes No hepatosplenomegaly present RECTAL EXAM: Yes deferred Extremity: COMMON NORMALS: no clubbing, cyanosis or edema and no pedal edema Neuro: COMMON NORMALS: patient oriented x3 Data : 03/12/21 04:11 03/12/21 04:11 A&P Assessment and plan (1) Atrial flutter: Continue tele Monitor EKG Currently on Flecanide as well as Eliquis, cardizem as well as metoprolol on hold due to bradycardia. Cardiology paln to Do TASHIA cardioversion Appreciate Cardiology Input. Status: Acute Qualifiers: Atrial flutter type: typical Qualified Code(s): I48.3 - Typical atrial flutter (2) HTN (hypertension): Currently well controlled Will resume home medications. Status: Acute Qualifiers: Hypertension type: primary hypertension Qualified Code(s): I10 - Essential (primary) hypertension (3) COPD (chronic obstructive pulmonary disease): Not In Exacerbation Status: Acute Qualifiers: COPD type: emphysema Emphysema type: centrilobular Qualified Code(s): J43.2 - Centrilobular emphysema Attestations Medical Necessity Statement*: Patient is still in hospital for management of a atrial flutter. 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
--- NOTE | 2021-03-12 14:03 | ECG_ITS ---
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 Measurements Intervals [place] Rate: 73 P: 111 [place]: 241 QRS: -23 QRSD: 133 T: 32 QT: 321 QTc: 355 Interpretive Statements SINUS RHYTHM WITH FIRST DEGREE AV BLOCK INTRAVENTRICULAR CONDUCTION DELAY [130+ ms QRS DURATION] POSSIBLE LATERAL MYOCARDIAL INFARCTION , OF INDETERMINATE AGE [30 ms Q WAVE IN I/aVL/V5/V6] INFERIOR MYOCARDIAL INFARCTION , PROBABLY OLD [40+ ms Q WAVE AND/OR ST/T ABNORMALITY IN II/aVF] Compared to ECG 03/11/2021 21:17:59 First degree AV block now present Atrial fibrillation no longer present Myocardial infarct finding still present Electronically Signed On 03-12-2021 19:45:16 [employer] by Brando Singletary M.D. [id number]
--- NOTE | 2021-03-12 14:06 | ANE.PACU2 ---
Inpatient post-anesthesia follow up: Airway intact: Yes Vital signs: Temperature 97.6 F Pulse Rate 94 Respiratory Rate 15 Blood Pressure 112/78 Pulse Oximetry 95 Oxygen Delivery Me thod Room Air Oxygen Flow Rate Fraction of Inspir ed Oxygen Hydration adequate: Yes Nausea and vomiting: No Pain level: 1 Mental status: Baseline
[2021-03-12] MEDS: tamsulosin 0.4 mg Capsule PO (18:25)
[2021-03-12] MEDS: atorvastatin 40 mg Tablet PO (18:25)
[2021-03-12] MEDS: pantoprazole DR 40 mg Tablet PO (18:25)
[2021-03-12] MEDS: ascorbic acid 500 mg Tablet 1000 MG PO (20:00)
[2021-03-13] VITALS (7 sets, daily range): BP systolic 105–125; BP diastolic 67–84; PULSE 80–91; RESP 13–16; TEMP 36.4–37.3; O2SAT 95–98
[2021-03-13] MEDS: flecainide 100 mg Tablet 150 MG PO (05:04)
[2021-03-13 05:05] LABS: Basophils # 0.1 10^3/uL (0.0-0.1); Basophils % 1.4 %; Eosinophils # 0.5 10^3/uL (0.0-0.8); Eosinophils % 4.7 %; Hematocrit 36.7 % (42.0-52.0); Hemoglobin 11.5 g/dL (11.7-16.6); Lymphocytes # 1.7 10^3/uL (0.8-4.8); Lymphocytes % 17.7 %; Mean Corpuscular HGB Conc 31.3 g/dL (30.0-36.0); Mean Corpuscular Hemoglobin 29.9 pg (28.0-34.0); Mean Corpuscular Volume 95.6 fl (80-94); Mean Platelet Volume 8.5 fL (7.4-10.4); Monocytes # 1.6 10^3/uL (0.2-0.9); Monocytes % 16.7 %; Neutrophils # 5.58 10^3/uL (1.8-7.7); Nucleated Red Blood Cells % 0 %; Platelet Count 272 10^3/cmm (130-400); Red Blood Count 3.84 10^6/uL (4.1-5.3); Red Cell Distribution Width 22.2 % (12.1-15.1); White Blood Count 9.6 10^3/uL (4.0-10.0)
[2021-03-13 05:42] LABS: Alanine Aminotransferase 20 U/L (0-41); Albumin Level 3.8 g/dL (3.5-5.2); Alkaline Phosphatase 115 IU/L (40-130); Anion Gap 15.1 (5-19); Aspartate Amino Transferase 21 U/L (0-40); Blood Urea Nitrogen 16 mg/dL (8-23); Calcium 8.8 mg/dL (8.5-10.5); Carbon Dioxide 25 mmol/L (22-29); Chloride 103 mmol/L (98-107); Globulin 2.7 g/dL (1.3-4.6); Glucose 90 mg/dL (65-115); Osmolality Calculated 289 mOsm/kg (285-295); Potassium 4.1 mmol/L (3.5-5.1); Sodium 139 mmol/L (136-145); Total Bilirubin 0.8 mg/dL (0.15-1.2); Total Protein 6.5 g/dL (6.6-8.7)
--- NOTE | 2021-03-13 08:59 | PM.PN ---
Subjective Subjective: Interval history: Feels well, No new complaints Vitals/I&O/Wt Last Vital Signs Temp 99.2 F 03/13/21 04:09 Pulse 91 03/13/21 05:43 Resp 14 03/13/21 04:09 BP 105/67 03/13/21 04:09 Pulse Ox 98 03/13/21 04:09 03/12/21 03/13/21 03/13/21 22:59 06:59 14:59 Output Total 300 / 300 425 / 725 Balance -300 / -300 -425 / -725 Weight last 48 hrs Weight 182 lb 9.6 oz Weight 184 lb 1.6 oz Weight 186 lb 12.8 oz Weight 179 lb Physical Exam Const: COMMON NORMALS: patient oriented x3 HENMT: COMMON NORMALS: normocephalic, atraumatic, hearing grossly normal bilaterally and external ears normal HEAD & SCALP: normocephalic and atraumatic EXTERNAL EAR: Yes external ears normal Eye: COMMON NORMALS: no scleral icterus GENERAL EYE: appearance normal, both eyes and all related structures Chest: COMMONS NORMALS: normal inspection of the chest and normal palpation of entire chest wall CHEST: Yes Symmetrical chest wall rise Resp: COMMON NORMALS: normal respiratory effort, No retractions, No use of accessory muscles and clear to auscultation bilaterally EFFORT & INSPECTION: Yes symmetric chest movement AUSCULTATION: clear to auscultation bilaterally Cardio: COMMON NORMALS: Peripheral pulses 2+ throughout PERIPHERAL PULSES: Peripheral pulses 2+ throughout OTHER: S1S2 Of variable Intensity, NO MRG , Irregeularly Irregular rthym GI: COMMON NORMALS: Normal to inspection, nondistended, normoactive bowel sounds present, Soft to palpation, non-tender, No hepatosplenomegaly present and no masses AUSCULTATION: Yes normoactive bowel sounds PALPATION: Yes Soft to palpation and Yes No hepatosplenomegaly present RECTAL EXAM: Yes deferred Extremity: COMMON NORMALS: no clubbing, cyanosis or edema and no pedal edema Neuro: COMMON NORMALS: patient oriented x3 Data : 03/13/21 03:44 03/13/21 03:44 A&P Assessment and plan (1) Dyspnea on exertion: Given extensive family h/o CAD, patient is scheduled for outpatient stress test next week Status: Acute (2) Atrial flutter: Symptomatic atrial flutter [id number]/9 ; 1 for HTN, 1 for age -continue Flecainide and Eliquis. -D/C cardizem. -Patient underwent successful cardioversion after ruling out left atrial appendage thrombus by TASHIA. -may resume metoprolol tartrate 12.5 mg twice a day. -Blood pressure heart rate log for 2 weeks -Follow-up in 1 to 2 weeks in [facility]. Status: Acute Qualifiers: Atrial flutter type: typical Qualified Code(s): I48.3 - Typical atrial flutter (3) HTN (hypertension): Dilatiazem held. Bp/HR log and changes based on that Status: Acute Qualifiers: Hypertension type: primary hypertension Qualified Code(s): I10 - Essential (primary) hypertension (4) BPH (benign prostatic hyperplasia): Status: Acute Qualifiers: Lower urinary tract symptom presence: unspecified whether lower urinary tract symptoms present Qualified Code(s): N40.0 - Benign prostatic hyperplasia without lower urinary tract symptoms (5) Peripheral neuropathy: Status: Acute Additional A&P Information Family h/o CAD H/O Yu's esopahgus: last eg[place] in 07/2020 [place] [facility] [place] no h/o GI bleed Thank you for allowing me to participate in patient's care. Please feel free to call with questions or concerns. Attestations Medical Necessity Statement*: stable to be dischraged home. Time Spent in Patient Care: 16 - 35 minutes (>than 50% of time spent in counselling and/or direct pt care on unit). Coding Level of Care Code Acute Rn Gynecology for [facility] Fwd Exam Comprehensive Diagnoses Dyspnea on exertion R06.00 Atrial flutter I48.3 Atrial flutter type: typical HTN (hypertension) I10 Hypertension type: primary hypertension BPH (benign prostatic hyperplasia) N40.0 Lower urinary tract symptom presence: unspecified whether lower urinary tract symptoms present Peripheral neuropathy G62.9
[2021-03-13] MEDS: apixaban 5 mg Tablet PO (09:03)
--- NOTE | 2021-03-13 09:30 | PC.NURSE ---
Ambulating the hallways. pt denies any chest pain or discomfort or worsening SOB HR remains between 80s to 90s, SR.
[2021-03-13] MEDS: metoprolol tartrate 25 mg Tablet 12.5 MG PO (10:10)
--- NOTE | 2021-03-13 10:17 | P.DS_ITS ---
Discharge Providers Date of Admission: 03/11/21 17:41 Date of Discharge: March 13, 2021 Attending Provider at Admission: Margarito Hood MD Attending Provider at Discharge: Margarito Hood MD Primary Care Provider: Prem Hatch MD Diagnoses at Discharge Discharge Diagnosis (1) Dyspnea on exertion: Status: Acute (2) Atrial flutter: Status: Acute Qualifiers: Atrial flutter type: typical Qualified Code(s): I48.3 - Typical atrial flutter (3) HTN (hypertension): Status: Acute Qualifiers: Hypertension type: primary hypertension Qualified Code(s): I10 - Essential (primary) hypertension (4) BPH (benign prostatic hyperplasia): Status: Acute Qualifiers: Lower urinary tract symptom presence: unspecified whether lower urinary tract symptoms present Qualified Code(s): N40.0 - Benign prostatic hyperplasia without lower urinary tract symptoms (5) Peripheral neuropathy: Status: Acute Reason for Visit Reason for Visit: Flucutating heart rate/pulse Hospital Course Hospital Course 70 year old male with past medical history of Atrial flutter , COVID-19 last year, BPH, pulmonary embolism more than 20 years ago post abdominal hernia surgery came in with c/o dizziness started this morning, his atrial flutter medications were being adjusted by his media production manager as outpatient, flecanide dose was increased to 150 mg po BID From 100 mg po BID as well as CARDIZEM Dose decreased to 180 From 300 likely he took 240 of Cardizem this morning and his H/R Dropped to 40s. When he arrived in the ER he was in a flutter with variable block with heart rate in 60s, at that time he denied any chest pain dizziness shortness of breath nausea vomiting cough or fever. He was admitted for the management of A.flutter With variable block. During the hospital stay he underwent TASHIA cardioversion, post cardioversion he was in normal sinus rhythm, he was discharged on flecainide 150 mg p.o. twice daily, metoprolol tartrate 12.5 mg p.o. every 12 hours, Eliquis was continued on discharge. Patient is due to get a nuclear stress test in a week. Patient responded well to above medical management and is being discharged in stable condition. He will continue to follow with cardiology as an outpatient. Physical Exam Const: COMMON NORMALS: patient oriented x3 HENMT: COMMON NORMALS: normocephalic, atraumatic, hearing grossly normal bilaterally and external ears normal HEAD & SCALP: normocephalic and atraumatic EXTERNAL EAR: Yes external ears normal Eye: COMMON NORMALS: no scleral icterus GENERAL EYE: appearance normal, both eyes and all related structures Chest: COMMONS NORMALS: normal inspection of the chest and normal palpation of entire chest wall CHEST: Yes Symmetrical chest wall rise Resp: COMMON NORMALS: normal respiratory effort, No retractions, No use of accessory muscles and clear to auscultation bilaterally EFFORT & INSPECTION: Yes symmetric chest movement AUSCULTATION: clear to auscultation bilaterally Cardio: COMMON NORMALS: Peripheral pulses 2+ throughout PERIPHERAL PULSES: Peripheral pulses 2+ throughout OTHER: S1S2 Of variable Intensity, NO MRG , Irregeularly Irregular rthym GI: COMMON NORMALS: Normal to inspection, nondistended, normoactive bowel sounds present, Soft to palpation, non-tender, No hepatosplenomegaly present and no masses AUSCULTATION: Yes normoactive bowel sounds PALPATION: Yes Soft to palpation and Yes No hepatosplenomegaly present RECTAL EXAM: Yes deferred Extremity: COMMON NORMALS: no clubbing, cyanosis or edema and no pedal edema Neuro: COMMON NORMALS: patient oriented x3 Discharge Data Data Completed and Pending: Completed Studies During Hospitalization Category Date Time Status XR chest 1V cristopher ble [id number] Urgent Exams 03/11/21 13:18 Completed Pending at discharge Category Date Time Status Complete Blood Co unt w/Auto AM LABS Lab 03/14/21 04:00 Ordered Comprehensive Met abolic Panel AM LA BS Lab 03/14/21 04:00 Ordered CV. echo transeso phageal [id number] Rout ine Ultrasound 03/12/21 13:00 Taken Labs from last 24 hours 03/13/21 03/13/21 03:44 03:44 WBC 9.6 RBC 3.84 L Hgb 11.5 L Hct 36.7 L MCV 95.6 H MCH 29.9 MCHC 31.3 RDW 22.2 H Plt Count 272 MPV 8.5 Neut % (Auto) 58.0 Lymph % (Auto) 17.7 Jerauld % (Auto) 16.7 Eos % (Auto) 4.7 Baso % (Auto) 1.4 Neut # (Auto) 5.58 Lymph # (Auto) 1.7 Jerauld # (Auto) 1.6 H Eos # (Auto) 0.5 Baso # (Auto) 0.1 Nucleated RBC % (a uto) 0 Nucleated RBCs # 0.0 Sodium 139 Potassium 4.1 Chloride 103 Carbon Dioxide 25 Anion Gap 15.1 BUN 16 Creatinine 1.1 GFR Calculation Not Reportable Glucose 90 Calculated Osmolal ity 289 Calcium 8.8 Total Bilirubin 0.8 AST 21 ALT 20 Alkaline Phosphata se 115 Total Protein 6.5 L Albumin 3.8 Globulin 2.7 Vitals: Last Vital Signs Temp 97.6 F 03/13/21 09:04 Pulse 82 03/13/21 09:10 Resp 13 03/13/21 09:04 BP 116/74 03/13/21 09:04 Pulse Ox 95 03/13/21 09:04 Discharge Plan Discharge Patient Disposition: Home Condition: Stable Prescriptions: Continued Eliquis 5 mg tablet 5 mg PO BID Qty: 60 RF: 2 tamsulosin 0.4 mg capsule 0.4 mg PO DAILY@18 RF: 0 atorvastatin 40 mg tablet 40 mg PO DAILY@18 RF: 0 flecainide 100 mg tablet 150 mg PO Q12H Qty: 60 RF: 0 multivitamin Tablet 1 tab PO DAILY RF: 0 ascorbic acid (vitamin C) [Vitamin C] 500 mg Tablet 1,000 mg PO BEDTIME RF: 0 omeprazole 20 mg capsule,delayed release(DR/EC) 60 mg PO DAILY@18 RF: 0 tadalafil 20 mg tablet 20 mg PO . DIRECTED PRN (Reason: Erectile Dysfunction) RF: 0 Advair Diskus 250-50 mcg/dose Blister With Device 1 inh INHALATION BID RF: 0 Vitamin D3 25 mcg (1,000 unit) Capsule 75 mcg PO BEDTIME RF: 0 Spiriva with HandiHaler 18 mcg Capsule, W/Inhalation Device 1 cap INHALATION DAILY RF: 0 ferrous gluconate 324 mg (38 mg iron) tablet 324 mg PO BID RF: 0 glucosamine HCl 500 mg Tablet 1,000 mg PO BEDTIME RF: 0 Changed metoprolol tartrate 50 mg tablet 12.5 mg PO BID 30 Days Qty: 60 RF: 2 Discontinued diltiazem HCl 240 mg capsule,extended release 24hr 240 mg PO QAM RF: 0 Discharge Orders: Discharge Order (Routine); Ordered 03/13/21 Ordered By: Margarito Hood Referrals: Leslie Field MD [Physician] - 1 week ([facility] will contact you to schedule an follow-up appointment in 1 week. If you haven't heard from by e sd morning. Please call ) Discharge Diet: Regular Discharge Activity: Resume usual activity Patient Instructions: A-fib (Atrial Fibrillation) (DC), Cardioversion (DC) Activity Restrictions/Additional Instructions: instructed pt to keep a log of his BP and HR at least twice a day. Continue to follow-up with his stress test outpatient. Discharge Attestations Time Spent in Discharge Care*: greater than 30 min Specific Discharge Activities: educating patient, educating and/or supporting family/caregiver, discussing with pcp/other providers, discussing with disease case manager/social workers/dc planners, documenting/other paperwork and evaluating patient/reviewing data Status at Discharge: Cognitive status at discharge: cognitively intact , Behavioral status at discharge: cooperative , Quality Metrics Clinical Quality Measures During this hospital stay, did patient experience: None Coding Level of Care Code Acute Chg FW DC note Diagnoses Dyspnea on exertion R06.00 Atrial flutter I48.3 Atrial flutter type: typical HTN (hypertension) I10 Hypertension type: primary hypertension BPH (benign prostatic hyperplasia) N40.0 Lower urinary tract symptom presence: unspecified whether lower urinary tract symptoms present Peripheral neuropathy G62.9
--- NOTE | 2021-03-13 12:32 | PC.NURSE ---
Discharge Note Patient discharged to home self care via wheelchair accompanied by . Discharge instructions reviewed with patient and/or help desk representative. Mobile pharmacy medications and/or prescriptions provided. Belongings/home medications returned.
== END 2021-03-13 11:58 | disposition home or self-care (01) | DRG 310 ==
LOC: ER 13:40 → CSU 17:51
PROVIDERS: Internal Medicine Cardiovascular Disease; Physician Assistant; Admitting Provider Internal Medicine; Emergency Provider Emergency Medicine; PCP Family Medicine; Visit Provider Internal Medicine
DX: I48.3 Typical atrial flutter (principal); I48.91 Unspecified atrial fibrillation; I10 Essential (primary) hypertension; R00.1 Bradycardia, unspecified; R06.00 Dyspnea, unspecified; N40.0 Benign prostatic hyperplasia without lower urinary tract symptoms; G62.9 Polyneuropathy, unspecified; J43.2 Centrilobular emphysema; Z86.16 Personal history of COVID-19; Z86.711 Personal history of pulmonary embolism; Z79.01 Long term (current) use of anticoagulants; Z82.49 Family history of ischemic heart disease and other diseases of the circulatory system; Z87.891 Personal history of nicotine dependence
CPT/HCPCS: 36415; 71045; 80053; 81001; 83735; 83880; 84439; 84443; 84484; 85025; 87426; 93005; 93312; 93320; 93325; 94640; 99285; J2704; J7030

== ENCOUNTER → 2021-03-16 13:37 | Outpatient (BNVA) | payer MEDICARE, SELFPAY | PROVIDERS: PCP Family Medicine; Visit Provider Urology | DX: Z12.5 Encounter for screening for malignant neoplasm of prostate (principal) | CPT/HCPCS: 81003; G0103 ==

== ENCOUNTER 2021-03-19 07:28 | Outpatient (CLI) | payer MEDICARE, SELFPAY ==
[2021-03-19 08:51] VITALS: BMI 28.1
--- NOTE | 2021-03-19 08:51 | ECG_ITS ---
[facility] Test Date: 2021-03-19 Pat Name: Ponce Son Department: Room: Gender: Male Cat And Dog Bather: Ashley Cheung : 1950 Requested By: Leslie Field Order Number: [id number] Suha MD: Leslie Field M.D. Interpretive Statements NAME OF STUDY: LEXISCAN SESTAMIBI STRESS TEST INDICATION: Dyspnea on exertion, atrial fibrillation, family history of CAD PROCEDURE: At the baseline, the blood pressure was 125/74 mmHg with a heart rate of 54 bpm. The electrocardiogram showed sinus bradycardia normal axis with nonspecific ST depression. Intraventricular conduction delay. Baseline artifact. The Lexiscan was infused over a period of 20 seconds. A total of 0.4 milligrams of Lexiscan was infused. The stress phase was continued for a total of 5 minutes. Heart rate at the end of the stress phase was 66 bpm with a blood pressure of 123/72 mmHg. The EKG at the peak infusion revealed sinus rhythm with first-degree AV block with no significant ST-T wave changes. The study was terminated to protocol completion. Sestamibi was injected 20 seconds after the Lexiscan infusion. Blood pressure at the end of the recovery phase was 117/69 mmHg with a heart rate of 64 beats per minute. CONCLUSION: 1. No significant EKG changes with the LexiScan infusion. 2. No LexiScan induced chest pain or cardiac arrhythmia. 3. Normal blood pressure and heart rate response. 4. Sestamibi/sestamibi perfusion scan pending; see separate report. Electronically Signed On 03-19-2021 16:51:09 EP TECH by Leslie Field M.D. [email or web address]
--- NOTE | 2021-03-19 08:52 | NMCV_ITS ---
NM miriam perf SPECT r/s* [id number] Ponce Son Age: 70 Gender: M : 1950 Exam Date: 03/19/2021 08:47 Ordering Phys: Leslie Field MD ([email or web address]) Technologist: RAMOS Lux Exam Location: [facility] Indications: SHORTNESS OF BREATH STRESS TEST Please see separate stress test report in [facility] for full findings IMAGE PROTOCOL Rest/Stress 1 Lexiscan Day Radiopharmaceutical Dose (mCi) Administration Site Administered by Rest: Tc-99m 10.9 IV RAMOS Lux Sestamibi Stress:Tc-99m 32.6 IV RAMOS Fuentes Sestamibi Rest: 19-Mar-2021 60 Discovery 630 Stress: 19-Mar-2021 30 Discovery 630 0.4mg Lexiscan. Images obtained in supine and prone position. SPECT RESULTS Technical Quality: Excellent Raw Data Analysis: Normal Image Corrections: No attenuation or motion correction applied Summed Stress Score: 0 Summed Rest Score: 6 Summed Difference Score: 0 PERFUSION FINDINGS Small size perfusion abnormality of mild severity of apical inferior, apical lateral and apical leong on rest images with improved tracer uptake on stress images. This likely represents attenuation artifact. FUNCTIONAL RESULTS (calculated via Gated SPECT) Stress Image LV EF (%): 61 Stress EDV (mL):118 TID: 1.12 Stress ESV (mL):46 FUNCTIONAL FINDINGS: The left ventricle is normal in size. Transient Ischemia Dilatation of 1.1. There is normal left ventricular systolic function. The left ventricular ejection fraction is normal with a value of 61%. There is normal left ventricular wall thickening. Normal end-diastolic end-systolic volumes. IMPRESSIONS 1. Myocardial perfusion imaging is normal. Attenuation artifact noted in apical inferior, apical lateral and apical leong. 2. Overall left ventricular systolic function is normal without regional wall motion abnormalities. 3. The left ventricular ejection fraction is normal with a value of 61%. 4. No significant EKG changes with Lexiscan infusion. 5. No prior similar studies to compare. Leslie Field MD (Electronically Signed) Final Date: 19 March 2021 17:06 S
[2021-03-19] MEDS: regadenoson 0.4 Mg/5 ml Syringe IVP (09:36)
[2021-03-19 09:37] VITALS: BP 117/69; PULSE 65
== END 2021-03-19 07:29 | disposition home or self-care (01) ==
LOC: CDL 07:29
PROVIDERS: PCP Family Medicine; Visit Provider Internal Medicine Cardiovascular Disease
DX: R06.09 Other forms of dyspnea (principal); R06.02 Shortness of breath
CPT/HCPCS: 78452; 93017; A9500; J2785

== ENCOUNTER → 2021-04-02 11:45 | Outpatient (BNVA) | payer MEDICARE, SELFPAY | PROVIDERS: PCP Family Medicine; Visit Provider Student in an Organized Health Care Education/Training Program | DX: Z01.812 Encounter for preprocedural laboratory examination (principal); Z20.822 Contact with and (suspected) exposure to COVID-19 | CPT/HCPCS: 87635 ==

== ENCOUNTER 2021-04-08 08:49 | Outpatient (CLI) | payer MEDICARE, SELFPAY ==
--- NOTE | 2021-04-08 11:31 | PFTS_ITS ---
Date of Study:04/08/21 Date of Dictation: 04/08/2021 MECHANICS: Prebronchodilator forced vital capacity (FVC) is normal. Prebronchodilator forced expiratory volume in one second (FEV1) is normal. FEV1/FVC is normal. There is no postbronchodilator study FLOW VOLUME LOOP:normal LUNG VOLUMES: Not measured DIFFUSING CAPACITY FOR CARBON MONOXIDE: Not measured . INTERPRETATION: The prebronchodilator spirometry is normal. GIGID
== END 2021-04-08 08:50 | disposition home or self-care (01) ==
LOC: RT 08:50
PROVIDERS: PCP Family Medicine; Visit Provider Student in an Organized Health Care Education/Training Program
DX: U07.1 COVID-19 (principal); J45.909 Unspecified asthma, uncomplicated
CPT/HCPCS: 94010

== ENCOUNTER 2021-04-22 07:48 | Outpatient (CLI) | payer MEDICARE, SELFPAY ==
--- NOTE | 2021-04-22 08:00 | CT_ITS ---
WS: [id number] CT CHEST TECHNIQUE: Noncontrast CT of the chest with coronal and sagittal reformatted images. CLINICAL INFORMATION: lung nodule COMPARISON: February 02, 2021 DLP: 897.[address] scans at [facility] use at least one of these dose optimization techniques: automated e xposure control; mA and/or kV adjustment per patient size (includes targeted exams where dose is matc hed to clinical indication); or iterative reconstruction. FINDINGS: Spiculated nodule in the left upper lobe measuring 1.8 x 1.4 cm. This is increased in size compared t o February 02, 2021 where it measured approximately 1.4 x 1.2 cm by my measurements. Findings are susp icious for neoplasm. Recommend further evaluation with PET/CT.Slight adjacent satellite nodularity. Multiple noncalcified subcentimeter pulmonary nodules in both lungs the largest measuring 4 mm in the right lower lobe and 4.6 mm in the left upper lobe. A few small hazy groundglass opacities some of w hich have progressed and some of which have improved compared to previous. No mediastinal or hilar lymphadenopathy. 12 mm left adrenal adenoma. No axillary lymphadenopathy. Hyp ertrophic changes thoracic spine. Mild thoracic curve. CT/CT chest wo con [id number] IMPRESSION: 1. Spiculated solid nodule left upper lobe measuring 1.8 x 1.4 cm slightly pro gressed compared to February 02, 2021 suspicious for neoplasm. Recommend further evaluation with PET/CT. This is deep to the left axilla and would be difficult access with CT-guided biopsy. 2. Multiple subcentimeter noncalcified pulmonary nodules largest measuring melissa roximately 4 mm. This is similar to previous. 3. Improved hazy groundglass opacities left upper lobe and left lower lobe. A few new groundglass opacities. This may be infectious or inflammatory but nonsp ecific in etiology. 4. No mediastinal or hilar lymphadenopathy. 5. Small left adrenal adenoma is stable.
== END 2021-04-22 07:49 | disposition home or self-care (01) ==
PROVIDERS: PCP Family Medicine; Visit Provider Internal Medicine Pulmonary Disease
DX: R91.1 Solitary pulmonary nodule (principal); D35.02 Benign neoplasm of left adrenal gland; R91.8 Other nonspecific abnormal finding of lung field
CPT/HCPCS: 71250

== ENCOUNTER → 2021-07-12 09:12 | Outpatient (BNVA) | payer MEDICARE, SELFPAY | PROVIDERS: PCP Family Medicine; Visit Provider Internal Medicine Pulmonary Disease | DX: R91.1 Solitary pulmonary nodule (principal); J43.2 Centrilobular emphysema; I48.3 Typical atrial flutter; Z87.891 Personal history of nicotine dependence; I10 Essential (primary) hypertension; Z86.16 Personal history of COVID-19 | CPT/HCPCS: 99204; 99214 ==

== ENCOUNTER → 2021-07-29 10:06 | Outpatient (BNVA) | payer MEDICARE, SELFPAY | PROVIDERS: PCP Family Medicine; Visit Provider Internal Medicine Pulmonary Disease | DX: Z20.822 Contact with and (suspected) exposure to COVID-19 (principal) | CPT/HCPCS: 87635 ==

== ENCOUNTER 2021-08-03 07:10 | Outpatient (CLI) | payer MEDICARE, SELFPAY ==
--- NOTE | 2021-08-03 15:03 | PFTS_ITS ---
Date of Study:08/03/21 Date of Dictation: MECHANICS: Forced vital capacity (FVC) is normal. Forced expiratory volume in one second (FEV1) is normal. FEV1/FVC is normal. FLOW VOLUME LOOP: Normal. LUNG VOLUMES: Total lung capacity (TLC) is normal. Residual volume (RV) is normal. DIFFUSING CAPACITY FOR CARBON MONOXIDE: Normal. INTERPRETATION: The prebronchodilator spirometry is normal. No postbronchodilator spirometry was performed. Lung volumes are normal. Gas exchange (DLCO) is normal. MTDD
== END 2021-08-03 07:11 | disposition home or self-care (01) ==
PROVIDERS: PCP Family Medicine; Visit Provider Internal Medicine Pulmonary Disease
DX: R06.00 Dyspnea, unspecified (principal); R91.1 Solitary pulmonary nodule
CPT/HCPCS: 94010; 94618; 94726; 94729

== ENCOUNTER → 2021-08-25 11:09 | Outpatient (BNVA) | payer MEDICARE, SELFPAY | PROVIDERS: PCP Family Medicine; Visit Provider Internal Medicine Pulmonary Disease | DX: R91.1 Solitary pulmonary nodule (principal); R06.00 Dyspnea, unspecified; J43.2 Centrilobular emphysema; I48.3 Typical atrial flutter; Z87.891 Personal history of nicotine dependence; I10 Essential (primary) hypertension; Z86.16 Personal history of COVID-19 | CPT/HCPCS: 99214 ==

== ENCOUNTER 2021-09-03 12:10 | Outpatient (CLI) | payer MEDICARE, SELFPAY ==
--- NOTE | 2021-09-03 12:30 | CT_ITS ---
WS: [id number] CT CHEST TECHNIQUE: Noncontrast CT of the chest with coronal and sagittal reformatted images. CLINICAL INFORMATION: f/u lung nodule COMPARISON: LEFT upper lobe DLP: 861.[address] scans at [facility] use at least one of these dose optimization techniques: automated e xposure control; mA and/or kV adjustment per patient size (includes targeted exams where dose is matc hed to clinical indication); or iterative reconstruction. FINDINGS: LEFT upper lobe subpleural pulmonary nodule today measures 1.5 x 1.2 cm unchanged since the recent PE T CT May 22, 2021. No evidence of interval progression. Mild chronic emphysematous changes. Tree-in-bud infiltrates in the RIGHT upper lobe. A few additional tiny subcentimeter pulmonary nodules some in a subpleural location are unchanged. Adrenal glands are normal. Noncontrast pancreas is normal. Normal GE junction. Mild spondylitic doyle es thoracic spine. CT/CT chest wo con [id number] IMPRESSION: 1. LEFT upper lobe subpleural pulmonary nodule is unchanged since the recent P ET CT May 22, 2021 measuring 1.5 x 1.2 CM. Recommend continued surveillance with CT chest in 3-6 months. 2. Moderate chronic emphysematous changes. No acute pulmonary infiltrates. 3. Tree-in-bud infiltrates in the RIGHT upper lobe likely inflammatory. 4. A few additional subpleural tiny nodules are unchanged. 5. No mediastinal or hilar lymphadenopathy.
== END 2021-09-03 12:11 | disposition home or self-care (01) ==
LOC: RAD 12:14
PROVIDERS: PCP Family Medicine; Visit Provider Internal Medicine Pulmonary Disease
DX: R91.1 Solitary pulmonary nodule (principal)
CPT/HCPCS: 71250

== ENCOUNTER → 2021-09-06 11:31 | Outpatient (BNVA) | payer MEDICARE, SELFPAY | PROVIDERS: PCP Family Medicine; Visit Provider Internal Medicine Pulmonary Disease | DX: R91.1 Solitary pulmonary nodule (principal); R06.00 Dyspnea, unspecified; J43.2 Centrilobular emphysema; I48.3 Typical atrial flutter; Z87.891 Personal history of nicotine dependence; I10 Essential (primary) hypertension; Z86.16 Personal history of COVID-19; Z87.898 Personal history of other specified conditions | CPT/HCPCS: 99214 ==

== ENCOUNTER → 2021-11-04 10:57 | Outpatient (BNVA) | payer MEDICARE, SELFPAY | PROVIDERS: PCP Family Medicine; Visit Provider Nurse Practitioner Family | DX: I48.91 Unspecified atrial fibrillation (principal); Z98.890 Other specified postprocedural states; R00.1 Bradycardia, unspecified; I44.0 Atrioventricular block, first degree | CPT/HCPCS: 93005; 99214 ==

== ENCOUNTER 2021-12-29 12:14 | Outpatient (CLI) | payer MEDICARE, SELFPAY ==
--- NOTE | 2021-12-29 12:30 | CT_ITS ---
WS: [id number] CT CHEST WITHOUT INTRAVENOUS CONTRAST HISTORY: 6 month f/u TECHNIQUE: Contiguous 5 mm axial imaging performed on the thorax. Coronal and sagittal reformats are submitted. All CT scans at [facility] use at least one of these dose optimization techniques: automated exposure control; mA and/or kV adjustment per patient size (includes targeted exams where dose is matched to clinical indication); or iterative reconstruction. CONTRAST: None DLP: 739.00 mGy.cm COMPARISON: 05/22/2021, 09/03/2021 and 04/22/2021 Lungs and central airway: Mildly hyperexpanded lungs from emphysema. Again noted is a slightly lobula amber, noncalcified nodule in the LEFT upper lobe slightly abutting the fissure. Nodule measures 14 x 1 1 mm. No significant increase in size as compared to prior imaging studies. There are a few adjacent small nodules and nodules along the fissure. This nodule is indeterminate but thought benign on a rec ent PET/CT. There are less inflammatory changes surrounding this nodule as compared to 04/22/2021. No new nodule. Very minimal increase in size could be due to volume averaging and slice selection. No n ew nodules. Pleura: Normal. No pleural effusion. Heart and pericardium: Normal size heart with no pericardial effusion. Mediastinum and miguelito: Small subcentimeter mediastinal and hilar lymph nodes. No increase in size of t he lymph nodes on this unenhanced exam. Vessels: Normal size aortic and pulmonary artery. No coronary artery calcifications. Chest wall and lower neck: No soft tissue masses. Upper abdomen: Small hiatal hernia. Mildly thickened LEFT adrenal gland is similar to prior studies. Probably hyperplasia. Osseous structures: No destructive process. CT/CT chest wo con [id number] IMPRESSION: 1. No significant increase in size of the lobulated, noncalcified subpleural L EFT upper lobe nodule. Indeterminate on PET/CT. No significant increase in size or change in the adjacent small nodules. 2. No adenopathy.
== END 2021-12-29 12:15 | disposition home or self-care (01) ==
LOC: RAD 12:15
PROVIDERS: PCP Family Medicine; Visit Provider Internal Medicine Pulmonary Disease
DX: R91.1 Solitary pulmonary nodule (principal)
CPT/HCPCS: 71250

== ENCOUNTER 2022-02-10 13:33 | Outpatient (CLI) | payer MEDICARE, SELFPAY ==
--- NOTE | 2022-02-10 14:15 | XRR_ITS ---
PROCEDURE INFORMATION: Exam: XR Chest Exam date and time: 02/10/2022 2:15 PM Age: 71 years old Clinical indication: Dyspnea and shortness of breath; Patient HX: SOB, low o2 level 2 days ago TECHNIQUE: Imaging protocol: Radiologic exam of the chest. Views: 2 views. COMPARISON: CT chest [facility] [id number] 12/29/2021 12:58 PM FINDINGS: Lungs: There is a subtle area of increased density measuring 1 cm peripherally involving the left lung. Correlating with the CT scan there is a nodule in this region. Pleural spaces: Unremarkable. No pleural effusion. No pneumothorax. Heart/Mediastinum: Unremarkable. No cardiomegaly. Bones/joints: Unremarkable. XR/XR chest 2V* [id number] IMPRESSION: Left lung nodule.
== END 2022-02-10 13:34 | disposition home or self-care (01) ==
PROVIDERS: PCP Family Medicine; Visit Provider Nurse Practitioner Family
DX: R06.00 Dyspnea, unspecified (principal); R91.1 Solitary pulmonary nodule; R06.02 Shortness of breath
CPT/HCPCS: 71046

== ENCOUNTER 2022-04-01 08:42 | Outpatient (CLI) | payer MEDICARE, SELFPAY ==
--- NOTE | 2022-04-01 09:30 | CT_ITS ---
WS: [id number] CT CHEST TECHNIQUE: Noncontrast CT of the chest with coronal and sagittal reformatted images. CLINICAL INFORMATION: 3 month f/u lung nodule COMPARISON: CT December 29, 2021 DLP: 747.[address] scans [facility] use at least one of these dose optimization techniques: automated e xposure control; mA and/or kV adjustment per patient size (includes targeted exams where dose is matc hed to clinical indication); or iterative reconstruction. FINDINGS: Hyperinflation. Mild chronic emphysematous changes. Again seen is the lobulated noncalcified subpleur al nodule LEFT upper lobe adjacent to the fissure measuring 1.4 x 1.1 cm. This is not significantly c hanged compared to previous. A few adjacent satellite nodules extending along the fissure are unchang ed. A few small nodules RIGHT lower lobe measuring 3-4 mm unchanged. Tiny noncalcified nodule RIGHT lower lobe superior segment measuring 3 mm. Tiny subpleural nodule RIGHT lower lobe laterally measuring 4 mm. Fibrosis in the lung apices. No focal pneumonia or pleural fluid. No mediastinal or hilar lymphadenopathy. No axillary lymphadenop athy. Small esophageal hiatal hernia. Small LEFT adrenal adenoma is unchanged. Mild disc space narrow ing lower thoracic spine. Normal caliber thoracic aorta. Coronary calcification. CT/CT chest wo con [id number] IMPRESSION: 1. Stable lobulated subpleural nodule LEFT upper lobe along the fissure with s urrounding tiny satellite nodules unchanged. Recommend continued surveillance. 2. No mediastinal or hilar lymphadenopathy. 3. Stable 3 to 4 mm noncalcified nodule RIGHT lower lobe. 4. No other suspicious findings or interval changes.
== END 2022-04-01 08:43 | disposition home or self-care (01) ==
PROVIDERS: PCP Family Medicine; Visit Provider Internal Medicine Pulmonary Disease
DX: R91.1 Solitary pulmonary nodule (principal)
CPT/HCPCS: 71250

== ENCOUNTER 2022-05-09 11:38 | Outpatient (CLI) | payer MEDICARE, SELFPAY ==
[2023-01-12 13:29] LABS: Miscellaneous Test See Scanned Lab Rpt
== END 2022-05-09 11:39 | disposition home or self-care (01) ==
PROVIDERS: PCP Family Medicine; Visit Provider Internal Medicine Pulmonary Disease
DX: R91.8 Other nonspecific abnormal finding of lung field (principal)
CPT/HCPCS: 36415

== ENCOUNTER → 2022-05-16 11:13 | Outpatient (BNVA) | payer MEDICARE, SELFPAY | PROVIDERS: PCP Family Medicine; Visit Provider Internal Medicine Cardiovascular Disease | DX: I48.3 Typical atrial flutter (principal); I10 Essential (primary) hypertension; Z82.49 Family history of ischemic heart disease and other diseases of the circulatory system; Z87.891 Personal history of nicotine dependence; Z79.01 Long term (current) use of anticoagulants; R00.1 Bradycardia, unspecified; R94.31 Abnormal electrocardiogram [ECG] [EKG] | CPT/HCPCS: 93005; 99214; Q3014 ==

== ENCOUNTER 2022-11-18 10:56 | Outpatient (CLI) | payer MEDICARE, SELFPAY ==
--- NOTE | 2022-11-18 11:00 | CTR_ITS ---
PROCEDURE INFORMATION: Exam: CT Chest Without Contrast; Diagnostic Exam date and time: 11/18/2022 11:05 AM Age: 72 years old Clinical indication: Condition or disease; Lung condition and disease; Pulmonary nodule, solitary; Additional info: 6 month f/u lung nodule(s) TECHNIQUE: Imaging protocol: Diagnostic computed tomography of the chest without contrast. Radiation optimization: All CT scans at this facility use at least one of these dose optimization techniques: automated exposure control; mA and/or kV adjustment per patient size (includes targeted exams where dose is matched to clinical indication); or iterative reconstruction. REPORTING DATA: Count of CT and Cardiac NM exams in prior 12 months: This patient has received 2 known CTs and 0 known cardiac nuclear medicine studies in the 12 months prior to the current study. COMPARISON: CT chest wo con [id number] 04/01/2022 8:57 AM RADIATION DOSE METRICS: Total DLP (mGy-cm): 320.52 FINDINGS: Lungs: There is a 1.4 x 1.1 cm nodule in the left upper lobe of the lung which is unchanged. There is an adjacent 0.7 cm nodule which is also unchanged. There is a 0.5 cm pleural based nodule in the right lower lobe on series 4, image 35, a 0.3 cm nodule in the right lower lobe on image 37 and a 0.3 cm nodule in the right middle lobe on image 36 which are unchanged. No new nodules have developed in the interval. No cavitation or calcification. Pleural spaces: No pleural effusion or pneumothorax. Heart: Unremarkable. No cardiomegaly. No pericardial effusion. Lymph nodes: Unremarkable. No enlarged lymph nodes. Vasculature: Unremarkable. No aortic aneurysm. Adrenal glands: There is a left adrenal adenoma as before. Bones/joints: Degenerative change is identified in the spine. No acute fracture. Soft tissues: Unremarkable. CT/CT chest wo con [id number] IMPRESSION: Lung nodules are again identified and not significantly changed when compared with 04/01/2022.
== END 2022-11-18 10:57 | disposition home or self-care (01) ==
PROVIDERS: PCP Family Medicine; Visit Provider Internal Medicine Pulmonary Disease
DX: R91.1 Solitary pulmonary nodule (principal); R91.8 Other nonspecific abnormal finding of lung field
CPT/HCPCS: 71250

== ENCOUNTER 2023-04-27 10:43 | Outpatient (CLI) | payer MEDICARE, SELFPAY ==
--- NOTE | 2023-04-27 11:00 | CTR_ITS ---
PROCEDURE INFORMATION: Exam: CT Chest Without Contrast; Diagnostic Exam date and time: 04/27/2023 11:28 AM Age: 72 years old Clinical indication: Condition or disease; Lung condition and disease; Pulmonary nodule, solitary; Additional info: Repeat study TECHNIQUE: Imaging protocol: Diagnostic computed tomography of the chest without contrast. Radiation optimization: All CT scans at this facility use at least one of these dose optimization techniques: automated exposure control; mA and/or kV adjustment per patient size (includes targeted exams where dose is matched to clinical indication); or iterative reconstruction. REPORTING DATA: Count of CT and Cardiac NM exams in prior 12 months: This patient has received [address] and 0 known cardiac nuclear medicine studies in the 12 months prior to the current study. COMPARISON: 1. CT chest wo con [id number] 11/18/2022 11:[address] chest abd pel w con* 02/02/2021 7:[address] chest wo con [id number] 04/01/2022 8:57 AM RADIATION DOSE METRICS: Total DLP (mGy-cm): 387.65 FINDINGS: Lungs: There is a noncalcified pulmonary nodule in the right lower lobe visible on series 4, image 34 measuring 4 mm, stable since 02/22/2021. There is mild patchy ill-defined ground-glass opacity in the medial basal segment of the right lower lobe and to a lesser extent in the central inferior right middle lobe. There is a noncalcified pulmonary nodule in the right lower lobe visible on series 4, image 29 measuring 3 mm, stable since 02/02/2021. There is a noncalcified pulmonary nodule in the right middle lobe visible on series 4, image 34 measuring 5 mm, stable since 02/02/2021. There is a noncalcified pulmonary nodule in the left upper lobe visible on series 4, image 27 measuring 18 x 14 mm. The nodule is similar to the finding on 02/02/2021 but partially obscured on that exam. The nodule is unchanged compared to 04/01/2022. There is mild bronchial wall thickening and peripheral bronchial mucous plugging in the left lower lobe. There is no consolidation in the left lung. Pleural spaces: There is no pleural effusion or pneumothorax. Heart: Heart size is normal. There is no pericardial effusion. Coronary arteries: There is moderate coronary artery calcification. Lymph nodes: There is no mediastinal or hilar lymphadenopathy. Vasculature: The aorta is unremarkable. There is no aneurysm. Adrenal glands: There are 2 adjacent low-density left adrenal nodules measuring up to 15 mm consistent with benign lipid rich adenomas, stable since 02/02/2021. No imaging follow-up is necessary. Bones/joints: Bones are unremarkable. Soft tissues: The extrathoracic soft tissues are unremarkable. CT/CT chest wo con [id number] IMPRESSION: 1. 18 mm left upper lobe pulmonary nodule is stable since 04/01/2022. Recommend correlation with prior PET CT (not available currently). Consider biopsy or continued follow-up. 2. Multiple bilateral pulmonary nodules measuring up to 5 mm are stable since 02/02/2021. No further follow-up is recommended. (Reference: Herlinda) 3. Nonspecific ground-glass opacity in the medial right lower lobe and central right middle lobe, new since 11/18/2022. Possible atelectasis or infection. 4. Incidental findings above. REFERENCES: Herlinda H, et al. Guidelines for Management of Incidental Pulmonary Nodules Detected on CT Images: From the Fleischner Society 2017. Radiology. 2017;284(1):228-243.
== END 2023-04-27 10:44 | disposition home or self-care (01) ==
LOC: RAD 10:44
PROVIDERS: PCP Family Medicine; Visit Provider Internal Medicine Pulmonary Disease
DX: R91.8 Other nonspecific abnormal finding of lung field (principal)
CPT/HCPCS: 71250

== ENCOUNTER → 2023-06-26 12:18 | Outpatient (BNVA) | payer MEDICARE, SELFPAY | PROVIDERS: PCP Family Medicine; Visit Provider Internal Medicine | DX: I48.3 Typical atrial flutter (principal); Z79.01 Long term (current) use of anticoagulants; Z82.49 Family history of ischemic heart disease and other diseases of the circulatory system; N40.0 Benign prostatic hyperplasia without lower urinary tract symptoms; I10 Essential (primary) hypertension; G62.9 Polyneuropathy, unspecified; Z87.891 Personal history of nicotine dependence | CPT/HCPCS: 99214 ==

== ENCOUNTER → 2023-07-31 10:04 | Outpatient (BNVA) | payer MEDICARE, SELFPAY | PROVIDERS: PCP Family Medicine; Visit Provider Nurse Practitioner Family | DX: I48.0 Paroxysmal atrial fibrillation (principal); Z87.891 Personal history of nicotine dependence; Z79.01 Long term (current) use of anticoagulants | CPT/HCPCS: 99213 ==

== ENCOUNTER → 2023-12-13 11:31 | Outpatient (BNVA) | payer MEDICARE, SELFPAY | PROVIDERS: PCP Family Medicine; Visit Provider Surgery | DX: K46.9 Unspecified abdominal hernia without obstruction or gangrene (principal) | CPT/HCPCS: 99204 ==

== ENCOUNTER → 2025-01-07 08:27 | Outpatient (BNVA) | payer MEDICARE, SELFPAY | PROVIDERS: PCP Family Medicine; Visit Provider Internal Medicine | DX: J44.9 Chronic obstructive pulmonary disease, unspecified (principal); R91.1 Solitary pulmonary nodule; J43.2 Centrilobular emphysema; Z87.891 Personal history of nicotine dependence | CPT/HCPCS: 99204; 99214 ==

== ENCOUNTER 2025-01-15 07:50 | Outpatient (CLI) | payer MEDICARE, SELFPAY ==
--- NOTE | 2025-01-15 07:45 | CT_ITS ---
WS: [id number] CT chest ION (PULM ONLY) 18111 HISTORY: lung nodule TECHNIQUE: Axial imaging performed through the thorax. Coronal and sagittal reformats are submitted. All CT scans at [facility] use at least one of these dose optimization techniques: automated exposure control; mA and/or kV adjustment per patient size (includes targeted exams where dose is matched to clinical indication); or iterative reconstruction. CONTRAST: None DLP: 287.31 mGy COMPARISON: 04/27/2023, 02/02/2021, PET/CT 05/22/2021 Lungs and central airway: Hyperinflated lungs. Minimal increase in size of a peripheral LEFT upper lobe pulmonary nodule which abuts the pleura now measuring 1.7 x 1.4 x 2.0 cm. This nodule was indeterminate by PET/CT with slight increased uptake noted. Emphysematous and paraseptal emphysematous changes. Thin linear scar RIGHT upper lobe. 0.7 cm noncalcified nodule along the RIGHT diaphragmatic surface is stable. Mild bronchiectasis RIGHT upper lobe. No additional mass or nodule increasing in size. Pleura: Normal. No pleural effusion. Heart and pericardium: Normal size heart with no pericardial effusion. Mediastinum and miguelito/vessels: Mild atherosclerosis aorta. Normal size pulmonary artery. No enlarged lymph nodes are identified. LEFT suprahilar lymph node indeterminate on the PET/CT does not appear to be increasing in size. Upper abdomen: Mild thickening medial LEFT adrenal gland is stable since 2022. Osseous structures: No destructive process. CT/CT chest ION (PULM ONLY) [id number] IMPRESSION: 1. Mild increase in size LEFT upper lobe pulmonary nodule now measuring 1.7 x 1.4 x 2.0 cm. This nodule was indeterminate on prior PET/CT from 05/22/2021. 2. 0.7 cm pulmonary nodule along the RIGHT diaphragmatic surface is stable. 3. No enlarging lymph nodes mediastinum or hilum.
== END 2025-01-15 07:51 | disposition home or self-care (01) ==
LOC: RAD 07:51
PROVIDERS: PCP Family Medicine; Visit Provider Internal Medicine
DX: R91.1 Solitary pulmonary nodule (principal); J98.4 Other disorders of lung; J43.8 Other emphysema; J47.9 Bronchiectasis, uncomplicated; I70.0 Atherosclerosis of aorta
CPT/HCPCS: 71250

== ENCOUNTER 2025-01-29 07:07 | Outpatient (CLI) | payer MEDICARE, SELFPAY | END 2025-01-29 07:08 | disposition home or self-care (01) | PROVIDERS: PCP Family Medicine; Visit Provider Internal Medicine | DX: J43.2 Centrilobular emphysema (principal) | CPT/HCPCS: 94010; 94726; 94729 ==

== ENCOUNTER → 2025-04-07 14:38 | Outpatient (BNVA) | payer MEDICARE, SELFPAY | PROVIDERS: PCP Family Medicine; Visit Provider Internal Medicine | DX: I48.91 Unspecified atrial fibrillation (principal); I10 Essential (primary) hypertension; Z87.891 Personal history of nicotine dependence | CPT/HCPCS: 99214 ==

== ENCOUNTER → 2025-04-14 09:00 | Outpatient (BNVA) | payer MEDICARE, SELFPAY | PROVIDERS: PCP Family Medicine; Visit Provider Internal Medicine | DX: R91.1 Solitary pulmonary nodule (principal); R06.2 Wheezing; Z87.891 Personal history of nicotine dependence | CPT/HCPCS: 99214; Q3014 ==